=== PATIENT | female | born 1970 | race Caucasian/White ===

== ENCOUNTER 2018-12-10 14:01 | Emergency (ER) | payer BC, SELFPAY ==
[2018-12-10 14:01] VITALS: BP 160/91; PULSE 96; RESP 16; TEMP 36.8; O2SAT 96; BMI 37.3
--- NOTE | 2018-12-10 14:10 | EKG12_ITS ---
Test Reason : CP Blood Pressure : / mmHG Vent. Rate : 097 BPM Atrial Rate : 097 BPM P-R Int : 146 ms QRS Dur : 094 ms QT Int : 348 ms P-R-T Axes : 073 052 050 degrees QTc Int : 441 ms Normal sinus rhythm Nonspecific ST abnormality Abnormal ECG Confirmed by MINO MEDINA, HAYLEY ([id number]), assistant production editor MICHAELA GONZALES ([id number]) on 12/14/2018 12:28:36 PM Referred By: MR Confirmed By:HAYLEY HERZOG MD
--- NOTE | 2018-12-10 14:10 | NURSING ---
NO OLD EKGS
[2018-12-10 14:25] VITALS: O2SAT 99
--- NOTE | 2018-12-10 14:27 | RAD_ITS ---
STUDY: X-RAY CHEST REASON FOR EXAM: Female, 48 years old. Chest pain. TECHNIQUE: Single AP portable view of the chest. COMPARISON: None. FINDINGS: EKG electrodes are seen. The lungs are clear and expanded. Scattered calcified granulomas. There is no demonstrated pleural abnormality. Normal size heart. Normal mediastinum and kraig. Normal visualized pulmonary arteries. Normal visualized aortic arch and descending thoracic aorta. Normal visualized thoracic spine. Normal visualized ribs, clavicles, and shoulders. There is no demonstrated abnormality of the visualized soft tissue structures of the upper abdomen. RAD/Chest 1 View (Portable) IMPRESSION: Normal x-ray examination of the chest. Electronically Signed: Denzel Amato, at 14:44 EDT , Service support ,
[2018-12-10 14:52] LABS: Absolute Lymphocyte Count 0.88 X10^3/uL (0.83-4.51); Absolute Neutrophil Count 4.1 X10^3/uL (2.0-7.7); Basophil# 0.02 X10^3/uL; Basophil% 0.4 % (0-1); Eosinophil# 0.11 X10^3/uL; Hematocrit 37.1 % (37-47); Hemoglobin 12.1 g/dL (12.0-15.0); Lymphocyte # 0.88 X10^3/ul (4.0); Lymphocyte % 15.7 % (19-41); Mean Corp Hgb Conc 32.6 g/dL (32-36); Mean Corpuscular Hgb 27.5 pg (27.0-32.0); Mean Corpuscular Volume 84.3 fL (81-99); Mean Platelet Vol. 8.7 fl (6.2-12.0); Monocyte% 8.9 % (0-10); NRBC Flagged by Analyzer 0 % (0-5); Neutrophil # 4.05 X10^3/uL (2.7-7.7); Neutrophil % 72.5 % (47-70); Platelet Count 218 K/mm3 (150-450); RBC Distribution Width CV 13.2 % (11.6-14.6); RBC Distribution Width SD 40.7 fl (35.1-43.9); White Blood Count 5.6 K/mm3 (4.4-11.0)
[2018-12-10 15:03] LABS: Anion Gap 2 (5-15); BUN 14 mg/dL (7-18); BUN/Creat Ratio 14.6 RATIO (10-20); Calcium,Total 9.2 mg/dL (8.5-10.1); Chloride 104 mmol/L (98-107); Creatinine, Serum 0.96 mg/dL (0.55-1.02); EST Glomerular Filtration Rate 66 mL/min (>60); Est Glom Filt Rate - Afr Amer 80 mL/min (>60); Estimated Creatinine Clearance 57.91 ml/min; Glucose 86 mg/dL (74-106); Potassium 3.8 mmol/L (3.5-5.1); Sodium Level 138 mmol/L (136-145)
--- NOTE | 2018-12-10 15:20 | ED.VISSUMM ---
- ER Visit Summary Date of Service: 12/10/18 Chief Complaint: Chest pain History of Present Illness: The patient is a [address] Garrett. She has no risk factors for coronary artery disease. She reports that she has chest pain that began approximately 10 minutes after eating today. She describes as a burning pain that is 5-10 at worst and 2-10 currently. Is worsened by nothing including exertion, breathing, or movement. It is also relieved by nothing. She denies any associated nausea, vomiting, diaphoresis, shortness of breath. No personal family history of DVT. No recent travel. No ankle swelling or calf pain. Physical Examination: Vitals: Stable. Afebrile. General: Well-nourished and well-developed. Head: Normocephalic atraumatic. Neck: Supple, no lymphadenopathy. No JVD. Nontender. Cardiovascular: Regular rate and rhythm. No murmurs. Respiratory: No respiratory distress. Clear to auscultation bilaterally. Abdominal: Soft, nontender, nondistended, normal bowel sounds. No guarding, rebound, or peritoneal signs. Back: Nontender. Extremities: Nontender, no edema. Skin: Normal color, no rash. Neurologic: Alert and oriented ?3. Cranial nerves II through XII are intact. Normal strength and sensation. Psych: Normal affect. Test Results: EKG is sinus at [address] changes. Troponin is negative. Chem-7 is normal. CBC is microcytic for 73 months at 16. Chest x-ray shows no acute disease. Emergency Department Course and Treatment: Patient was treated with aspirin and a GI cocktail. She reports that she has gotten significant relief from this. Treatment Plan: Patient's pain is very atypical. She will be discharged with Zantac and instructed to follow-up with her primary care physician as soon as possible. Return to the emergency department for any worsening symptoms. Disposition: To home in improved and stable condition. Impression: 1. Atypical chest pain. 2. ERICA score of 0. This note was generated with [employer] dictation software. It may contain incorrect words, spelling, and punctuation that were not noted in review of the chart prior to signing ED Disposition - Plan for ED Patient: Disposition: Home or Assisted Living Instructions: CHEST PAIN, Uncertain Cause Prescriptions: Ranitidine [Zantac] 300 mg PO DAILY #30 tab Prescription Printed Referrals: Ángel Garrett, DO [Primary Care Provider] - As soon as possible
[2018-12-10] MEDS: Mag Hydrox/Al Hydrox/Simeth 30 ML UDC PO (15:40)
[2018-12-10 15:41] VITALS: BP 132/86; PULSE 74; RESP 16; O2SAT 98
[2018-12-10 16:10] VITALS: BP 126/74; PULSE 72; RESP 15; O2SAT 96
== END 2018-12-10 16:12 | disposition home or self-care (01) ==
LOC: ED 15:01
PROVIDERS: Emergency Provider Emergency Medicine; Family Provider Student in an Organized Health Care Education/Training Program; PCP Student in an Organized Health Care Education/Training Program
DX: R07.89 Other chest pain (principal); Z79.82 Long term (current) use of aspirin; Z79.899 Other long term (current) drug therapy; Z87.442 Personal history of urinary calculi
CPT/HCPCS: 71045; 80048; 84484; 85025; 93005; 99285; A4216

== ENCOUNTER 2018-12-21 17:11 | Outpatient (RCR) | payer BC, SELFPAY | END 2018-12-23 23:59 | LOC: NS 17:11 | PROVIDERS: Family Provider Student in an Organized Health Care Education/Training Program; PCP Student in an Organized Health Care Education/Training Program; Visit Provider Obstetrics & Gynecology | DX: E66.3 Overweight (principal); Z68.37 Body mass index [BMI] 37.0-37.9, adult; Z71.3 Dietary counseling and surveillance | CPT/HCPCS: 97802 ==

== ENCOUNTER 2019-01-19 17:00 | Outpatient (RCR) | payer BC, SELFPAY | END 2019-01-23 23:59 | LOC: NS 17:00 | PROVIDERS: Family Provider Student in an Organized Health Care Education/Training Program; PCP Student in an Organized Health Care Education/Training Program; Visit Provider Obstetrics & Gynecology | DX: Z68.37 Body mass index [BMI] 37.0-37.9, adult (principal); E66.3 Overweight; Z71.3 Dietary counseling and surveillance | CPT/HCPCS: 97803 ==

== ENCOUNTER → 2019-02-05 12:45 | Outpatient (CLI) | payer BC, SELFPAY ==
--- NOTE | 2019-02-05 12:59 | RAD_ITS ---
STUDY: X-RAY - CERVICAL SPINE REASON FOR EXAM: Female, 48 years old. Neck pain TECHNIQUE: 5 view(s) of the cervical spine were obtained. COMPARISON: None FINDINGS: Normal anterior atlantoaxial articulation. Normal odontoid process. Normal cervical lordosis. Normal vertebral bodies and endplates. Normal disc space heights. Normal visualized intervertebral neuroforamina. The soft tissue structures are unremarkable. RAD/Cerv Spine 4 or 5 Views IMPRESSION: Normal x-ray examination of the visualized cervical spine. Electronically Signed: Juan M Sumner, at 20:49 EDT Tel , Service support ,
--- NOTE | 2019-02-05 12:59 | RAD_ITS ---
STUDY: X-RAY - THORACIC SPINE REASON FOR EXAM: Female, 48 years old. Pain TECHNIQUE: 3 view(s) of the thoracic spine were obtained. COMPARISON: None. FINDINGS: Normal kyphosis of the thoracic spine. There is no substantial scoliosis. Normal thoracic vertebrae and endplates. Normal disc space heights. The soft tissue structures are unremarkable. RAD/Thoracic Spine 3 Views IMPRESSION: Normal x-ray examination of the thoracic spine. Electronically Signed: Juan M Sumner, at 20:57 EDT Tel , Service support ,
--- NOTE | 2019-02-05 12:59 | RAD_ITS ---
STUDY: X-RAY - LUMBAR SPINE REASON FOR EXAM: Female, 48 years old. Low back pain TECHNIQUE: 3 view(s) of the lumbar spine were obtained. COMPARISON: None FINDINGS: Normal lumbar lordosis. There is no substantial scoliosis. There is a normal alignment of the vertebrae. Normal vertebral bodies and endplates. Normal disc space heights. The soft tissue structures are unremarkable. There is a 1 cm dense calcification projecting over the lower renal pole. RAD/Lumbar Spine 2 or 3 Views IMPRESSION: Normal x-ray examination of the lumbar spine. Possible left renal pole 1 cm stone, inconclusively demonstrated. Recommend confirmatory imaging. Electronically Signed: Juan M Sumner, at 20:55 EDT Tel , Service support ,
== END ==
PROVIDERS: Family Provider Student in an Organized Health Care Education/Training Program; PCP Student in an Organized Health Care Education/Training Program; Referring Provider Student in an Organized Health Care Education/Training Program; Visit Provider Student in an Organized Health Care Education/Training Program
DX: M54.6 Pain in thoracic spine (principal); G89.29 Other chronic pain
CPT/HCPCS: 72050; 72072; 72100

== ENCOUNTER → 2019-02-15 17:03 | Outpatient (CLI) | payer BC, SELFPAY ==
--- NOTE | 2019-02-15 17:06 | US_ITS ---
STUDY: RENAL ULTRASOUND - COMPLETE REASON FOR EXAM: Female, 48 years old. Renal stones TECHNIQUE: Ultrasound evaluation of the kidneys was performed with real-time and static godoy-scale imaging. COMPARISON: None available. FINDINGS: RIGHT KIDNEY: Normal location of the right kidney, which is normal in size. The right kidney measures 10 cm. There is a normal cortex of the right kidney. There is no right renal mass or cyst. There is a right renal midpole 9 mm stone. Mild bilateral collecting system fullness. DISTAL RIGHT URETER: Not seen. LEFT KIDNEY: Normal location of the left kidney, which is normal in size. The left kidney measures 10 cm. There is a normal cortex of the left kidney. There is no left renal mass or cyst. There is a left renal midpole 1.1 cm stone. Mild bilateral collecting system fullness is present. DISTAL LEFT URETER: Not seen. AORTA: No evidence of abdominal aortic aneurysm. I.V.C.: The IVC is patent. BLADDER: The urinary bladder is partially distended and appears unremarkable. US/Kidney and Bladder IMPRESSION: Bilateral renal stones. Mild bilateral collecting system fullness. Electronically Signed: Yogi Ward, at 19:43 EDT Tel , Service support ,
== END ==
LOC: US 17:05
PROVIDERS: Family Provider Student in an Organized Health Care Education/Training Program; PCP Student in an Organized Health Care Education/Training Program; Referring Provider Student in an Organized Health Care Education/Training Program; Visit Provider Student in an Organized Health Care Education/Training Program
DX: N20.0 Calculus of kidney (principal); R39.89 Other symptoms and signs involving the genitourinary system
CPT/HCPCS: 76770

== ENCOUNTER 2019-02-16 17:00 | Outpatient (RCR) | payer BC, SELFPAY | END 2019-02-22 23:59 | LOC: NS 17:00 | PROVIDERS: Family Provider Student in an Organized Health Care Education/Training Program; PCP Student in an Organized Health Care Education/Training Program; Visit Provider Obstetrics & Gynecology | DX: Z68.37 Body mass index [BMI] 37.0-37.9, adult (principal); E66.3 Overweight; Z71.3 Dietary counseling and surveillance | CPT/HCPCS: 97803 ==

== ENCOUNTER 2019-03-23 17:00 | Outpatient (RCR) | payer BC, SELFPAY | END 2019-03-25 23:59 | LOC: NS 17:00 | PROVIDERS: Family Provider Student in an Organized Health Care Education/Training Program; PCP Student in an Organized Health Care Education/Training Program; Visit Provider Obstetrics & Gynecology | DX: Z68.37 Body mass index [BMI] 37.0-37.9, adult (principal); E66.3 Overweight; Z71.3 Dietary counseling and surveillance | CPT/HCPCS: 97803 ==

== ENCOUNTER 2019-04-15 16:01 | Outpatient (RCR) | payer BC, SELFPAY | END 2019-04-24 23:59 | LOC: NS 16:01 | PROVIDERS: Family Provider Student in an Organized Health Care Education/Training Program; PCP Student in an Organized Health Care Education/Training Program; Visit Provider Obstetrics & Gynecology | DX: Z71.3 Dietary counseling and surveillance (principal); Z68.37 Body mass index [BMI] 37.0-37.9, adult; E66.3 Overweight | CPT/HCPCS: 97803 ==

== ENCOUNTER 2019-05-24 17:15 | Outpatient (RCR) | payer BC, SELFPAY | END 2019-05-25 23:59 | LOC: NS 17:15 | PROVIDERS: Family Provider Student in an Organized Health Care Education/Training Program; PCP Student in an Organized Health Care Education/Training Program; Visit Provider Obstetrics & Gynecology | DX: Z71.3 Dietary counseling and surveillance (principal); E66.3 Overweight; Z68.37 Body mass index [BMI] 37.0-37.9, adult | CPT/HCPCS: 97803 ==

== ENCOUNTER 2019-06-15 16:20 | Outpatient (RCR) | payer BC, SELFPAY ==
[2019-05-14 08:03] VITALS: BMI 37.3
[2019-06-14 15:17] VITALS: BMI 37.3
== END 2019-06-15 23:59 | disposition home or self-care (01) ==
LOC: NS 16:20
PROVIDERS: Family Provider Student in an Organized Health Care Education/Training Program; PCP Student in an Organized Health Care Education/Training Program; Visit Provider Obstetrics & Gynecology
DX: Z71.3 Dietary counseling and surveillance (principal); Z68.37 Body mass index [BMI] 37.0-37.9, adult; E66.3 Overweight
CPT/HCPCS: 97803

== ENCOUNTER → 2020-08-02 07:58 | Outpatient (CLI) | payer OTHER, BC, SELFPAY ==
[2020-06-13 16:07] VITALS: BMI 34.7
[2020-08-02 08:16] LABS: Absolute Lymphocyte Count 0.77 X10^3/uL (0.83-4.51); Absolute Neutrophil Count 3.9 X10^3/uL (2.0-7.7); Basophil# 0.03 X10^3/uL; Basophil% 0.6 % (0-1); Eosinophil# 0.19 X10^3/uL; Eosinophils% 3.5 % (0-5); Hemoglobin 12.8 g/dL (12.0-15.0); Lymphocyte # 0.77 X10^3/ul (4.0); Lymphocyte % 14.4 % (19-41); Mean Corp Hgb Conc 32.8 g/dL (32-36); Mean Corpuscular Hgb 27.8 pg (27.0-32.0); Mean Corpuscular Volume 84.8 fL (81-99); Mean Platelet Vol. 8.6 fl (6.2-12.0); Monocyte# 0.43 X10^3/uL; NRBC Flagged by Analyzer 0 % (0-5); Neutrophil % 72.8 % (47-70); Platelet Count 239 K/mm3 (150-450); RBC Distribution Width CV 13.1 % (11.6-14.6); RBC Distribution Width SD 40.2 fl (35.1-43.9); White Blood Count 5.4 K/mm3 (4.4-11.0)
[2020-08-02 08:34] LABS: Hemoglobin A1c 5.2 % (3.8-5.6)
[2020-08-02 08:39] LABS: ALB/GLOB Ratio 0.9 RATIO (0.9-2.4); AST(SGOT) 14 U/L (15-37); Alanine Aminotransfer ALT/SGPT 20 U/L (13-56); Albumin, Serum 3.6 g/dL (3.2-5.0); Alkaline Phosphatase 104 U/L (45-117); Anion Gap 1 (5-15); BUN 16 mg/dL (7-18); BUN/Creat Ratio 21.1 RATIO (10-20); Calcium,Total 8.9 mg/dL (8.5-10.1); Chloride 105 mmol/L (98-107); Cholesterol 226 mg/dL (200); Creatinine, Serum 0.76 mg/dL (0.55-1.02); EST Glomerular Filtration Rate 87 mL/min (>60); Est Glom Filt Rate - Afr Amer 105 mL/min (>60); Glucose 89 mg/dL (74-106); High Density Lipoprotein 78 mg/dL; Potassium 4.1 mmol/L (3.5-5.1); Protein, Total 7.6 g/dL (6.4-8.2); Sodium Level 138 mmol/L (136-145); Thyroid Stim Hormone (TSH) 3.17 uIU/mL (0.358-3.74); Triglycerides 65 mg/dL; Very Low Density Lipoprotein 13 mg/dL (5-40)
[2020-08-02 08:52] LABS: Vitamin D,25 Hydroxy 32.8 ng/mL
== END ==
PROVIDERS: PCP Internal Medicine; Referring Provider Internal Medicine; Visit Provider Internal Medicine
DX: G35 Multiple sclerosis (principal); R79.89 Other specified abnormal findings of blood chemistry; E55.9 Vitamin D deficiency, unspecified; E66.9 Obesity, unspecified; Z13.1 Encounter for screening for diabetes mellitus; Z13.220 Encounter for screening for lipoid disorders
CPT/HCPCS: 36415; 80053; 80061; 82306; 83036; 84443; 85025

== ENCOUNTER → 2021-01-23 07:54 | Outpatient (CLI) | payer OTHER, BC, SELFPAY ==
--- NOTE | 2021-01-23 07:55 | VDLE_ITS ---
Reason For Study: Swelling RIGHT GSV is normal. CFV is compressible, spontaneous, phasic, competent and demonstrates normal augmentation. FV is compressible, spontaneous, phasic, competent and demonstrates normal augmentation. POP V is compressible, spontaneous, phasic, competent and demonstrates normal augmentation. T/P Trunk is compressible. PTV is compressible. RT PerV is compressible. Procedure This is a venous duplex using B-mode, color flow and spectral Doppler. Exam performed in department. A preliminary report was called and/or faxed to Edu. VL/Venous Duplex US, Unilateral Interpretation Summary There is no evidence of right lower extremity deep vein thrombosis. Right great saphenous vein appears patent and compressible segmentally. Ordering Physician: Cass Sorensen Referring Physician: Cass Sorensen Performed By: Vanna Mariano RVT
== END ==
PROVIDERS: PCP Internal Medicine; Referring Provider Internal Medicine; Visit Provider Internal Medicine
DX: M79.606 Pain in leg, unspecified (principal); M79.89 Other specified soft tissue disorders
CPT/HCPCS: 93971

== ENCOUNTER 2021-07-21 11:02 | Emergency (ER) | payer OTHER, BC, SELFPAY ==
[2021-07-21 11:03] VITALS: BP 147/96; PULSE 93; RESP 15; TEMP 36; O2SAT 97; BMI 36.6
--- NOTE | 2021-07-21 11:19 | VDLE_ITS ---
Reason For Study: pain Procedure LEFT This is a venous duplex using B-mode, color GSV is normal. flow and spectral Doppler. CFV is compressible, spontaneous, phasic, Exam performed portable in ED. competent, and demonstrates normal The exam was abbreviated due to the COVID 19 augmentation. protocol. FV is compressible, spontaneous, phasic, The exam was diagnostic. competent and demonstrates normal A preliminary report was called and/or faxed augmentation. to Dr. Allison. POP V is compressible, spontaneous, phasic, competent and demonstrates normal augmentation. T/P Trunk is compressible. Calf veins not imaged due to splint. VL/Venous Duplex US, Unilateral Interpretation Summary There is no evidence of left lower extremity deep vein thrombosis. Left great s aphenous vein appears patent and compressible segmentally. Limited examination as the left calf veins could not be imaged due to the application of a splint. Abbreviated Covid-19 protocol utilized Ordering Physician: Jak Allison Performed By: Filipe Ortez RVT
--- NOTE | 2021-07-21 11:20 | EDS_ITS ---
HPI History of Present Illness Chief Complaint: Lower Extremity Injury Narrative Narrative: Patient presents with left lower extremity pain. 1 to 2 weeks ago she sustained a trimalleolar fracture to her left ankle. She was seen in outside facility. Over the last few days she started having burning pain when standing. She states it took them a few times to set her ankle, according to her . She denies any chest pain or shortness of breath. She called her primary care physician and was sent to the emergency department with concern for a blood clot. She states that when she elevates her leg at home, she does not get the pain, but when she stands she gets the burning sensation and increased pain in her lower leg. No fevers or chills. No discoloration of toes. PFSH PFS Medical History Allergic dermatitis Bilateral headaches Heart murmur History of kidney stones Multiple sclerosis Optic neuritis Home Medications aspirin 162 mg PO BID 12/10/18 [History Last Taken Unknown] cholecalciferol (vitamin D3) 2,000 unit PO DAILY 12/10/18 [History Last Taken Unknown] dimethyl fumarate 1 cap PO BID 12/10/18 [History Last Taken Unknown] cyanocobalamin (vitamin B-12) 500 mcg tablet 500 mcg PO DAILY 10/28/19 [History Last Taken Unknown] omega-3 fatty acids 1,000 mg capsule 1,000 mg PO DAILY 05/08/20 [History Last Taken Unknown] baclofen 10 mg tablet 10 mg PO BID PRN 06/08/20 [History Last Taken Unknown] estradiol 0.5 mg tablet 0.5 mg PO DAILY 30 Days #90 tab 07/19/20 [Rx Last Taken Unknown] ibuprofen 200 mg capsule 200 mg PO Q6H PRN 07/05/21 [History Last Taken Unknown] miscellaneous medical supply #1 ea 07/16/21 [Rx Last Taken Unknown] miscellaneous medical supply 1 ea MISCELLANEOUS .prn #1 ea 07/16/21 [Rx Last Taken Unknown] Allergy/AdvReac Type Severity Reaction Status Date / Time No Known Allergies Allergy Verified 07/21/21 11:05 Family History Grandfather Brain cancer Father CVA (cerebral vascular accident) Diabetes Other Asthma Cancer Hyperlipemia Hypertension Kidney disease Ovarian cancer Thyroid disorder Surgical History History of cholecystectomy History of endoscopy History of hysterectomy History of lithotripsy History of right oophorectomy Social History Smoking Status: Never smoker alcohol intake: current alcohol intake frequency: holidays/special occasions only substance use type: does not use caffeine: Yes what type of physical activity do you participate in: walking frequency: 3-4 times per week seatbelt use: always do you feel safe at home: Yes additional social history: - [place] 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 HEENT: No sore throat. No neck pain. No loss of vision. No rhinorrhea. Cardiovascular: No chest pain. No palpitations. No pedal edema. Respiratory: No cough, no shortness of breath. Abdominal: No abdominal pain. No nausea. No vomiting. Genitourinary: No dysuria. No hematuria. Musculoskeletal: No myalgias. Left ankle pain, left lower extremity pain and burning sensation upon standing. Neurologic: No headaches. No dizziness. No lightheadedness. Skin: No rash. No change in color. Psychiatric: No depression. No anxiety. EXAM Physical Exam Narrative Exam Narrative: Afebrile. Vital signs noted. HEENT: Normocephalic. Atraumatic. PERRL, EOMI. Neck soft and supple. No point tenderness or step off. Cardiovascular: Regular rate and rhythm. No murmurs, rubs, or gallops appreciated. Respiratory: No tachypnea. Lungs clear to auscultation bilaterally. Gastrointestinal: Abdomen soft, nontender, with normoactive bowel sounds. No rebound or guarding. Neurological: Awake. Alert. Nonfocal, nonlateralizing. Skin: No rash. Normal color. No pallor. Musculoskeletal: No pedal edema. Left lower extremity is in a modified Rogelio Arias splint. She has good movement of her toes on the left side with good capillary refill. Toes are normal in color. No tenderness to palpation left anterior thigh. Const Vital Signs: 07/21/21 11:03 Temperature 96.8 F L Temperature Source Temporal Pulse Rate 93 Respiratory Rate 15 Blood Pressure 147/96 H Blood Pressure Mean 113 Pulse Ox 97 Oxygen Delivery Method Room Air MDM MDM MDM Narrative Medical decision making narrative: In discussion with the patient and her , they are hesitant to have me remove her splint given the instability of her trimalleolar fracture. With concern for a blood clot, ultrasound will be obtained at least to the level of her splint. Her ultrasound is negative for DVT. They were unable to perform the calf veins secondary to the splint. Regardless, I do feel that she can be discharged safely home with follow-up to podiatry on Friday for her surgery. She was told to elevate her leg as much as possible. As she states that she only gets a sensation when she stands, I do feel it is from the swelling and she is having more neuropathic burning pain. Hence, she will elevate her leg and follow-up with podiatry. Disposition is discharged home in stable condition. Discharge Plan Triage Chief Complaint: Lower Extremity Injury ED Provider: Jak Allison Dx/Rx/DC Orders Clinical Impression: Leg pain Instructions: ED Fracture, Lower Extremity Prescriptions: No Action cyanocobalamin (vitamin B-12) [B-12 DOTS] 500 mcg tablet 500 mcg PO DAILY RF: 0 omega-3 fatty acids [Fish Oil Concentrate] 1,000 mg capsule 1,000 mg PO DAILY RF: 0 baclofen 10 mg tablet 10 mg PO BID PRNRF: 0 ibuprofen 200 mg capsule 200 mg PO Q6H PRNRF: 0 miscellaneous medical supply Misc 1 ea miscellaneous .prn Qty: 1 RF: 0 cholecalciferol (vitamin D3) 2,000 UNIT capsule 2,000 unit PO DAILY RF: 0 dimethyl fumarate 240 capsule,delayed release(DR/EC) 1 cap PO BID RF: 0 aspirin 81 MG tablet,chewable 162 mg PO BID RF: 0 estradiol 0.5 mg tablet 0.5 mg PO DAILY 30 Days Qty: 90 RF: 3 (DME) miscellaneous medical supply Misc See Rx Instructions .ROUTE .MEDSUPPLY Qty: 1 RF: 0 Primary Care Provider: Cass Sorensen Referrals: Cass Sorensen MD [Primary Care Provider] - Activity Restrictions/Additional Instructions: 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 Keep your left lower extremity elevated as much as possible. Disposition Disposition: Home, Self Care
== END 2021-07-21 12:55 | disposition home or self-care (01) ==
PROVIDERS: Emergency Provider Emergency Medicine; PCP Internal Medicine; Visit Provider Emergency Medicine
DX: M79.605 Pain in left leg (principal); G35 Multiple sclerosis; M79.89 Other specified soft tissue disorders; S82.852D Displaced trimalleolar fracture of left lower leg, subsequent encounter for closed fracture with routine healing; X58.XXXD Exposure to other specified factors, subsequent encounter; Z79.82 Long term (current) use of aspirin; Z79.899 Other long term (current) drug therapy
CPT/HCPCS: 93971; 99282

== ENCOUNTER 2021-07-24 15:17 | Observation (INO) | payer OTHER, BC, SELFPAY ==
[2021-07-21 11:08] LABS: Absolute Lymphocyte Count 0.62 X10^3/uL (0.83-4.51); Absolute Neutrophil Count 5.3 X10^3/uL (2.0-7.7); Basophil# 0.03 X10^3/uL; Basophil% 0.5 % (0-1); Eosinophil# 0.06 X10^3/uL; Eosinophils% 0.9 % (0-5); Hemoglobin 12.5 g/dL (12.0-15.0); Lymphocyte # 0.62 X10^3/ul (0.83-4.51); Lymphocyte % 9.7 % (19-41); Mean Corp Hgb Conc 33.8 g/dL (32-36); Mean Corpuscular Hgb 28.4 pg (27.0-32.0); Mean Corpuscular Volume 84.1 fL (81-99); Mean Platelet Vol. 8.6 fl (6.2-12.0); Monocyte# 0.36 X10^3/uL; Monocyte% 5.7 % (0-10); NRBC Flagged by Analyzer 0 % (0-5); Neutrophil # 5.28 X10^3/uL (2.7-7.7); Neutrophil % 82.9 % (47-70); Platelet Count 261 K/mm3 (150-450); RBC Distribution Width CV 12.9 % (11.6-14.6); RBC Distribution Width SD 38.8 fl (35.1-43.9); White Blood Count 6.4 K/mm3 (4.4-11.0)
[2021-07-21 11:17] LABS: Prothrombin Time (Protime)PT. 12.8 SECONDS (11.7-14.9)
[2021-07-21 11:18] LABS: Partial Thromboplast Time 24.8 Seconds (24.1-36.2)
[2021-07-21 11:45] LABS: Anion Gap 1 (5-15); BUN 10 mg/dL (7-18); BUN/Creat Ratio 13.8 RATIO (10-20); Calcium,Total 9.6 mg/dL (8.5-10.1); Chloride 105 mmol/L (98-107); Creatinine, Serum 0.73 mg/dL (0.55-1.02); EST Glomerular Filtration Rate 91 mL/min (>60); Est Glom Filt Rate - Afr Amer 110 mL/min (>60); Glucose 99 mg/dL (74-106); Sodium Level 137 mmol/L (136-145)
--- NOTE | 2021-07-23 12:03 | EKG12_ITS ---
Test Reason : PRE OP Blood Pressure : / mmHG Vent. Rate : 084 BPM Atrial Rate : 084 BPM P-R Int : 144 ms QRS Dur : 078 ms QT Int : 356 ms P-R-T Axes : 071 069 057 degrees QTc Int : 420 ms Normal sinus rhythm Normal ECG Confirmed by MINO MEDINA, HAYLEY ([id number]), legal editor TAWANNA RIVAS ([id number]) on 07/24/2021 10:42:45 AM Referred By: Savanah Joseph Confirmed By:HAYLEY HERZOG MD
[2021-07-24] VITALS (8 sets, daily range): BP systolic 123–152; BP diastolic 76–91; PULSE 74–90; RESP 16–18; TEMP 35.8–36.9; O2SAT 94–100; BMI 36.3
[2021-07-24 12:10] LABS: Vitamin D,25 Hydroxy 33.4 ng/mL
--- NOTE | 2021-07-24 12:28 | RAD_ITS ---
STUDY: X-RAY - LEFT ANKLE REASON FOR EXAM: Female, 50 years old. ORIF of a left ankle fracture TECHNIQUE: 20 intraoperative view(s) of the ankle. COMPARISON: None. FINDINGS: 20 Limited intraoperative films were performed as patient has undergone open reduction internal fixation of a posterior malleolar fracture There is already a metallic sideplate with multiple screws along the distal lateral fibula. During this procedure patient underwent 2 threaded screws through the posterior tibia to reduce minimally displaced fracture. Alignment after hardware placement is anatomic. Follow-up is recommended to assure complete osseous union. No intraoperative complications. RAD/Ankle min 3 Views IMPRESSION: ORIF of the distal tibial fracture Electronically Signed: Eduardo Baez MD at 15:12 EST ,
[2021-07-24] MEDS: Cefazolin 2 GM in 0.9% Normal Saline 100 ML IV (12:37)
--- NOTE | 2021-07-24 15:15 | PCM.OPRPT ---
Problems Associated Problem List Diagnoses (1) Displaced trimalleolar fracture of left lower leg, initial encounter for closed fracture: Report of Operation Date of Procedure: 07/24/21 Pre-Operative Diagnosis: Left trimalleolus ankle fracture equivalent Post-Operative Diagnosis: Left trimalleolus ankle fracture equivalent Surgery/Procedure Performed:: Open reduction internal fixation of left ankle fracture Description of Surgical Findings:: Hemostasis: Well-padded pneumatic left thigh tourniquet, 350 mmHg, 93 minutes Materials: 8 hole Arthrex posterior lateral contour plate, 2 partially threaded 3.0 cannulated screws, one 3.5 locking screw, two 3.5 cortical screws, two 3.0 cortical screws, two 3.0 locking screws, 2-0 Vicryl, 4-0 Monocryl The patient tolerated the procedure and anesthesia well. The patient was transported to the PACU with vital signs stable and vascular status intact to the surgical limb. To ice and elevate for pain and inflammation management. Postoperative x-rays were reviewed prior to leaving the operating room. Adequate deformity and fracture reduction in an anatomic manner was confirmed with hardware in place in the desired trajectory and position. No acute injuries were noted. The ankle mortise is well aligned in a rectus position. Post fixation stress test were also performed including stress eversion, dorsiflexion external rotation, and cotton test without additional gross instability of the syndesmosis. Postoperative orders were entered electronically. Surgeon: Savanah Joseph silk hanger: None (visual merchandising assistant: Ana Stacy, PGY3) Type of Anesthesia: General/Regional (Popliteal left lower extremity block) and Local (Postoperative: 10 cc 0.5% Marcaine plain administered to saphenous nerve block left lower extremity) Anesthesiologist: Abad Arevalo Specimen's removed: None Drains: None Estimated Blood Loss (mL): < 100 mL Description of Procedure: Indications: This 50-year-old pleasant female with significant past medical history of obesity, multiple sclerosis, history of heart murmur presented for open reduction internal fixation of left ankle fracture today. She slipped on some ice approximately 1.5 weeks ago when she went out for a walk with her sister while in [place]. Her neurovascular status is intact and she had her ankle fracture was reduced in the emergency room and she was placed in a splint. This remained a closed fracture. Preoperative H&P were reviewed including her diagnostic data. There were no gross abnormalities noted with labs or preoperative EKG. Preoperative indications, planned procedure, benefits, risk, anticipated healing time and management were reviewed. The patient understands and elects proceed with surgery at this time. No guarantees were made. The patient understands risk and complications include but are not limited to following: pain, swelling, scarring, need for further surgery, tendon contracture, transfer lesion, hardware failure, arthritis, need for further surgery, delayed or nonhealing, infection, blood clot, allergic reaction, loss of limb, function, or life. The informed surgical limb and consent were signed. I answered all the patient's questions. The patient also understands there is an inherent risk with being in the hospital and undergoing a procedure during the time of COVID-19 pandemic. The patient understands precautions are being taken to prevent transmission. This patient understands the benefits and risks of having a procedure at this time versus waiting in which the benefits are reasonable at this time. Procedure in detail: Prior to entering the operating room, the left lower extremity preoperative regional block was administered by the anesthesia team. The patient was then transported to the operating room via cart and final verification of the patient, surgery, and surgical limb were confirmed. General anesthesia was initiated by the anesthesia team. Preoperative IV antibiotics were administered. The patient was next placed into a prone position in a well-padded manner. A well-padded left thigh tourniquet was placed. The left lower extremity was prepped and draped in the usual aseptic manner and surgery began as the following: An Esmarch bandage was used to exsanguinate the limb and the tourniquet was inflated at this time. A linear 10 cm incision was made to the posterior lateral ankle posterior to the fibular border. This incision made through the skin. Blunt dissection was performed down to the posterior crural fascia taking care to identify, protect, and retract all neurovascular structures at this time and throughout the remainder of the surgery. A rent was made into this posterior fascial compartment and the peroneal tendons and flexor hallucis longus tendon were clearly identified. The peroneal tendons were retracted posteriorly and the fibula fracture was immediately identified. This was mobilized and cleaned with sharp instrumentation to allow adequate reduction. First, the posterior lateral plate was secured distally with cortical and locking screws. Next, the through plate reduction the distal fibula was slightly pulled out to proper length and another cortical screw was applied proximally. The plate at this time was well approximated to the fibula and the proximal holes were filled with a locking screw utilizing proper AO fixation technique. Next, utilizing lag screw technique with proper AO fixation technique, two screw was applied across the main fracture fragment to allow better rotational position and compression. All reduction clamps were removed and solid fixation was confirmed as this moved as one solid unit. Deformity and fracture reduction was confirmed clinically and radiographically. Next, the peroneal tendons were retracted anteriorly and flexor hallucis longus muscle belly medial so the posterior fracture fragment was identified directly. Sharp resection of the periosteum was performed only at the fracture fragment site to allow mobilization. This was temporarily fixated with guidewires and utilizing proper AO fixation technique, two cannulated partially threaded 3.0 screws were applied to allow compression and full fracture reduction. Improvement of the articular alignment was achieved. Proper hardware placement including trajectory and placement was confirmed with intraoperative fluoroscopy. The joint surfaces are well aligned and the fibula maintained the desired length. There was no articular step off noted and compression at the fracture site was confirmed. The fractures were noted to be anatomically reduced. The syndesmosis was next stressed with a cotton test, stress eversion and dorsiflexion external rotation. No instability was noted. Therefore additional fixation was not deemed necessary. Copious saline irrigation was performed. Deep closure was achieved with Vicryl. The tourniquet was deflated at this time and pressure was applied to maintain hemostasis with minimal electrocauterization. No pulsatile bleeding was noted. There was brisk capillary refill time to all digits of the left foot at this time. The skin was reapproximated with running 4.0 Monocryl suture utilizing subcuticular technique. I administered the postoperative local anesthetic as noted. A dressing consisting of Steri-Strips, Adaptic soaked in Betadine, gauze, abdominal pads, and Kerlix was applied. Lastly, A well-padded posterior mold with sugar tong splint was next applied with the left lower extremity in a rectus position. After procedure: The patient tolerated the procedure and anesthesia well. The patient was transported to the PACU with vital signs stable and vascular status intact to the surgical limb. To ice and elevate for pain and inflammation management. Postoperative x-rays were reviewed prior to leaving the operating room as noted. Postoperative orders were entered electronically. She will stay for observation for pain control. Physical and occupational therapy will work with her tomorrow to confirm appropriate gait training. I will follow her closely while in house. Savanah Joseph DPM, [facility] [place] Grafts/Implants Used: Arthrex Complications None Admit VTE Documentation VTE Present on Admission: No VTE Mechan Device Prophylaxis: SCD's VTE Pharm Prophylaxis ordered?: Yes
--- NOTE | 2021-07-24 15:15 | PCM.HP.STD ---
HPI - General General Date of Admission: 07/24/21 HPI Narrative This pleasant 50 year old female with significant past medical history of multiple sclerosis and obesity was admitted postoperative left open reduction internal fixation of ankle fracture for pain control and gait training. She had surgical repair on 07/24/21. [facility] Medical History (Updated 07/24/21 @ 15:[address] Savanah Joseph, [facility]) Allergic dermatitis Bilateral headaches Heart murmur History of irregular heartbeat History of kidney stones Multiple sclerosis Non-smoker Optic neuritis Wears contact lenses Wears glasses Home Medications aspirin 162 mg PO BID 12/10/18 [History Last Taken 07/20/21] cholecalciferol (vitamin D3) 2,000 unit PO DAILY 12/10/18 [History Last Taken Unknown] dimethyl fumarate [Tecfidera] 1 cap PO BID 12/10/18 [History Last Taken Unknown] cyanocobalamin (vitamin B-12) 500 mcg tablet 500 mcg PO DAILY 10/28/19 [History Last Taken Unknown] omega-3 fatty acids 1,000 mg capsule 1,000 mg PO DAILY 05/08/20 [History Last Taken Unknown] baclofen 10 mg tablet 10 mg PO BID PRN 06/08/20 [History Last Taken Unknown] estradiol 0.5 mg tablet 0.5 mg PO DAILY 30 Days #90 tab 07/19/20 [Rx Last Taken Unknown] ibuprofen 200 mg capsule 200 mg PO Q6H PRN 07/05/21 [History Last Taken Unknown] miscellaneous medical supply #1 ea 07/16/21 [Rx Last Taken Unknown] miscellaneous medical supply 1 ea MISCELLANEOUS .prn #1 ea 07/16/21 [Rx Last Taken Unknown] Allergy/AdvReac Type Severity Reaction Status Date / Time No Known Allergies Allergy Verified 07/23/21 13:58 Family History Grandfather Brain cancer Father CVA (cerebral vascular accident) Diabetes Other Asthma Cancer Hyperlipemia Hypertension Kidney disease Ovarian cancer Thyroid disorder Surgical History History of cholecystectomy History of endoscopy History of hysterectomy History of lithotripsy History of right oophorectomy Social History Smoking Status: Never smoker alcohol intake: current alcohol intake frequency: holidays/special occasions only substance use type: does not use caffeine: Yes what type of physical activity do you participate in: walking frequency: 3-4 times per week seatbelt use: always do you feel safe at home: Yes additional social history: - [place] 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 [employer] Vital Signs Vital Signs Vital Signs: 07/24/21 11:36 Temperature 98.4 F Temperature Source Temporal Pulse Rate 74 Respiratory Rate 16 Respiratory Pattern Normal Blood Pressure 143/90 H Blood Pressure Mean 107 Blood Pressure Source Monitor Blood Pressure Position Semi-Fowlers Blood Pressure Location Right Arm Pulse Ox 99 Oxygen Delivery Method Room Air Weight Weight: 90 kg Body Mass Index (BMI) 36.3 Physical Exam Const alert and oriented x3 General Appearance: cooperative HEENT normocephalic Resp clear to auscultation bilaterally Cardio regular rate and regular rhythm Extremity Extremity Narrative: No calf tenderness palpable 2/4 PT and DP pulses bilateral lower extremities. Capillary refill time to all digits of the left foot are brisk less than 3 seconds. No pain to palpate proximal fibula, left No bogginess or fluctuance Compartments remain soft to palpation left lower extremity Pain to palpate ankle joints at fracture sites Postoperative left lower extremity is now in a splint in a rectus position General Extremity: edema and no tenderness to palpation of joints or extremities; Negative for cyanosis Skin Skin Narrative: no purulence, no streaking, no odor, no infection. There was a small fracture blister to the lateral ankle at the site of her tattoo. There is no skin tenting or other fracture blisters. Postoperative incision was reapproximated with dressing. General Skin Exam: Negative for erythema Neuro Neuro Narrative: Epicritic sensation intact to light touch left lower extremity Psych cooperative and affect normal Results Lab / Micro Data Result Diagrams: 07/21/21 10:54 07/21/21 10:54 Labs: Laboratory Results - last 24 hr 07/24/21 11:30: Vitamin D 25-Hydroxy 33.4 Radiology Impression Ankle X-Ray 07/24/21 12:28 IMPRESSION: ORIF of the distal tibial fracture Electronically Signed: Eduardo Baez MD at 15:12 EST , Assessment & Plan Assessment/Plan (1) Displaced trimalleolar fracture of left lower leg, initial encounter for closed fracture: (2) Left ankle pain: (3) Difficulty in walking: PLAN: This patient was admitted postoperative left open reduction internal fixation of her ankle fracture. She is observation status for pain management. Pain medication was ordered if needed; oxycodone and morphine. She is stable at this time and has a regional left lower extremity block also in place. Anticoagulation prophylaxis medication will be ordered for tomorrow morning. Continue Vit D supplementation to optimize healing. I recommend she works with PT and OT to confirm appropriate gait training prior to discharge home. Her comorbidities are noted. Hospitalist on consult for medical management and will be appreciated. She is overall stable at this time. I will follow her closely while in house. Please not hesitate to call if you have any questions. Savanah Joseph DPM, [facility] [phone] Procedure Criteria Type of Procedure Procedure Type: Elective Elective Risks - COVID COVID Risk Discussion: The surgeon/proceduralist and patient have discussed in detail the risk of exposure to and/or potential harm posed by the COVID-19 virus with having a surgery/procedure at this time versus the risk of delaying the surgery/procedure. It is not possible to know either the risk of delaying the surgery or procedure or chance of getting an infection with perfect accuracy, but a joint decision was made between the patient and the surgeon/proceduralist to proceed at this time with the scheduled surgery/procedure as indicated on the consent form.
[2021-07-24] MEDS: Bupivacaine Mpf 0.5% 30 ML VIAL (15:19)
--- NOTE | 2021-07-24 15:30 | RAD_ITS ---
STUDY: X-RAY - LEFT ANKLE REASON FOR EXAM: Female, 50 years old. s/p ORIF ankle fracture TECHNIQUE: 3 view(s) of the ankle. COMPARISON: None. FINDINGS: Healing fracture of the posterior tibia after open reduction and internal fixation with 2 screws. Healing fracture of the distal fibula after open reduction internal fixation with a lateral plate and screws. Normal medial and lateral malleoli. Normal tibiotalar articulation and ankle mortise. Normal visualized talus and calcaneus. The visualized subtalar, talonavicular, calcaneocuboid and tarsal articulations are normal. Fiberglass cast obscures soft tissue and bony detail. RAD/Ankle min 3 Views IMPRESSION: Status post open reduction internal fixation of fracture of the posterior tibia and distal fibula. Electronically Signed: Vernon Romero MD at 15:44 EST ,
--- NOTE | 2021-07-24 16:03 | SUR.PHASEI ---
PATIENT AWAITING BED UPSTAIRS WILL MONITOR IS ac17, PHASE 2.
--- NOTE | 2021-07-24 16:48 | PN.HOSP_ITS ---
Subjective Subjective Is a 42-year-old female who slipped on ice about a week ago and sustained a trimalleolar left ankle fracture. Patient had seen her primary care doctor and was medically cleared to proceed with surgery and patient underwent ORIF of the left ankle fracture today by Dr. Joseph. Dr. Joseph reached out and consulte d the Hospitalist service for medical management. Currently the patient is asymptomatic but did have nerve blocks he does not have any feeling in her left leg at this time. Objective Data Objective Data Vital Signs: Vital Signs Temp Pulse Resp BP Pulse Ox 35.8 C L 76 16 143/91 H 100 07/24/21 16:00 07/24/21 16:00 07/24/21 16:00 07/24/21 16:00 07/24/21 16:00 Oxygen Delivery Method Room Air Weight: 90 kg Body Mass Index (BMI) 36.3 Lab / Micro Data Result Diagrams: 07/21/21 10:54 07/21/21 10:54 Labs: Laboratory Results - last 24 hr 07/24/21 11:30: Vitamin D 25-Hydroxy 33.4 Radiography Diagnostic Testing: Radiology Impression Ankle X-Ray 07/24/21 12:28 IMPRESSION: ORIF of the distal tibial fracture Electronically Signed: Eduardo Baez MD at 15:12 EST , Ankle X-Ray 07/24/21 15:30 IMPRESSION: Status post open reduction internal fixation of fracture of the posterior tibia and distal fibula. Electronically Signed: Vernon Romero MD at 15:44 EST , Physical Exam Const Constitutional Narrative: No acute distress and afebrile. Resp normal respiratory effort, no retractions, no use of accessory muscles and clear to auscultation bilaterally Cardio regular rate, regular rhythm, S1 normal heart sound and S2 normal heart sound GI normal to inspection, nondistended, normoactive bowel sounds, soft to palpation, non-tender and non-distended Extremity normal to inspection and full ROM Skin no rashes or lesions noted and no wounds Assessment & Plan Assessment/Plan (1) Displaced trimalleolar fracture of left lower leg, initial encounter for closed fracture: (2) Multiple sclerosis: PLAN: 1. Displaced trimalleolar fracture s/p ORIF today by Dr. Joseph PT OT to evaluate and treat starting on the second. 2. Multiple sclerosis Relapsing remitting type Continue with dimethyl fumarate, baclofen 3. VTE prophylaxis with enoxaparin 4. COVID-19 vaccination status: Patient has been vaccinated for COVID-19. Thank for the consult. The hospital service will follow along during this patient's hospitalization. Charges/Coding Visit Charges OBSV E&M: 98142 Subsequent observation care L2
[2021-07-25 01:00] VITALS: BP 122/72; PULSE 90; RESP 16; TEMP 36.8; O2SAT 94
[2021-07-25 04:58] VITALS: BP 128/74; PULSE 87; RESP 16; TEMP 36.7; O2SAT 96
--- NOTE | 2021-07-25 07:24 | PCM.PROGNOTE ---
Subjective Subjective This 50-year-old female was seen bedside postoperative day #1 open reduction internal fixation of left ankle fracture. She rates her pain as a 3 out of 10. Her regional block is still partially working. She denies fever, chill, nausea, vomiting, shortness of breath, chest pain, urinary retention or constipation or calf pain. Objective Data Objective Data Vital Signs: Vital Signs Temp Pulse Resp BP Pulse Ox 98.1 F 87 16 128/74 H 96 07/25/21 04:58 07/25/21 04:58 07/25/21 04:58 07/25/21 04:58 07/25/21 04:58 Oxygen Delivery Method Room Air Weight: 90 kg Body Mass Index (BMI) 36.3 Intake & Output: Intake and Output for Last 24 Hours 07/23/21 07/24/21 07/25/21 23:59 23:59 23:59 Intake Total 110 / 110 Output Total 600 / 600 400 / 400 Balance -490 / -490 -400 / -400 Lab / Micro Data Result Diagrams: 07/21/21 10:54 07/21/21 10:54 Labs: Laboratory Results - last 24 hr 07/24/21 11:30: Vitamin D 25-Hydroxy 33.4 Radiography Diagnostic Testing: Radiology Impression Ankle X-Ray 07/24/21 12:28 IMPRESSION: ORIF of the distal tibial fracture Electronically Signed: Eduardo Baez MD at 15:12 EST , Ankle X-Ray 07/24/21 15:30 IMPRESSION: Status post open reduction internal fixation of fracture of the posterior tibia and distal fibula. Electronically Signed: Vernon Romero MD at 15:44 EST , Physical Exam Const alert and oriented x3 General Appearance: cooperative Extremity Extremity Narrative: No calf tenderness Capillary refill time to all digits of the left foot are brisk less than 3 seconds. Compartments remain soft to palpation left lower extremity Left lower extremity splint in a rectus position AROM digits x 5 left General Extremity: edema and no tenderness to palpation of joints or extremities; Negative for cyanosis Skin Skin Narrative: No strikethrough noted on the splint or dressing General Skin Exam: Negative for erythema Neuro Neuro Narrative: Epicritic sensation intact to light touch left lower extremity including the toes Psych cooperative and affect normal Assessment & Plan Assessment/Plan (1) Displaced trimalleolar fracture of left lower leg, initial encounter for closed fracture: (2) Left ankle pain: (3) Difficulty in walking: PLAN: This patient was seen postoperative day #1 open reduction internal fixation left ankle fracture. Pain medication was ordered if needed; oxycodone and morphine. She is apprehensive to take pain medication and I recommend considering this prior to complete resolution of extremity block. Antiinflammatory was ordered and she plans to take oral medication. She is stable at this time. If controlled after block is done, she will be discharged home this afternoon. Anticoagulation prophylaxis medication will be ordered for this morning for in house use. We discussed the benefits, risks, and indications for anticoagulation medication for use after discharge and she will continue on her aspirin regimen. Continue Vit D supplementation to optimize healing. I recommend she works with PT and OT to confirm appropriate non weightbearing status prior to discharge home. Scheduled for this morning. Her comorbidities are noted. Hospitalist on consult for medical management is appreciated. She is overall stable at this time. I will follow her closely while in house. Please do not hesitate to call if you have any questions. She will [facility]. Savanah Joseph DPM, [facility] [phone]
[2021-07-25] MEDS: 0.9% Saline Lock 10 ML Syringe IV (07:50)
[2021-07-25] MEDS: Ketorolac 15 MG/ML Vial IV (07:50)
[2021-07-25] MEDS: Cholecalciferol (VIT D3) 25 MCG TABLET (1,000 UNITS) 50 MCG PO (08:29)
[2021-07-25 08:30] VITALS: BP 116/67; PULSE 80; RESP 16; TEMP 36.5; O2SAT 98
[2021-07-25] MEDS: Cyanocobalamin 500 MCG Tablet PO (08:30)
[2021-07-25] MEDS: Acetaminophen 325 MG Tablet 650 MG PO (08:32)
--- NOTE | 2021-07-25 10:47 | CASEMGMT ---
RN KANE SAS ADMINISTRATOR CM to room to meet with patient for initial transition planning/care coordination assessment. EDOUARD MIDDLETON introduced self and role at [facility]. Pt voices understanding and consents to assessment at this time. Pt resting in bed in no distress at this time. Pt is A/O at this time and answers all questions appropriately. Care providers, pharmacy, and demographics verified/updated at this time. PCP: Dr Sorensen Specialists: Dr French--ELECTRONICS TESTER Preferred Pharmacy: [facility] Retail Insurance: Faraz Drummond Prescription Benefit: Yes Living Will/HPOA: Pt does not currently have LW/HCPOA and declines info at this time. LNOK: , [place] Living Arrangements: Lives w/her in one-story home w/4 steps w/railing. Independent prior to fall and injury. Pt and share home tasks. Pt's mother planning to stay w/pt for a few days to help. Transportation: Pt, DME: States has the following DME: built-in shower seat, walker, knee scooter, crutches, W/C Pt states no need for further DME at this time. HHC/SNF: No hx of either. No needs identified. PT/OT notes reviewed. No additional therapy recommended Pt wishes to return home and states has no concerns with going home at time of discharge. CM to follow for any discharge planning/needs. Pt voices no concerns/needs at this time. PLAN: Home w/family support and discharge plans in place. Val PETERSON RN, CM
--- NOTE | 2021-07-25 11:03 | PCM.PN.HOSP ---
Subjective Subjective Follow-up on medical management for trimalleolar left ankle fracture: Patient was seen and examined. Denied any new complaints. Denied any fever or chills. Objective Data Objective Data Vital Signs: Vital Signs Temp Pulse Resp BP Pulse Ox 97.7 F L 80 16 116/67 98 07/25/21 08:30 07/25/21 08:30 07/25/21 08:30 07/25/21 08:30 07/25/21 08:30 Oxygen Delivery Method Room Air Weight: 90 kg Body Mass Index (BMI) 36.3 Intake & Output: Intake and Output for Last 24 Hours 07/23/21 07/24/21 07/25/21 23:59 23:59 23:59 Intake Total 110 / 110 Output Total 600 / 600 400 / 400 Balance -490 / -490 -400 / -400 Lab / Micro Data Result Diagrams: 07/21/21 10:54 07/21/21 10:54 Labs: Laboratory Results - last 24 hr 07/24/21 11:30: Vitamin D 25-Hydroxy 33.4 Radiography Diagnostic Testing: Radiology Impression Ankle X-Ray 07/24/21 12:28 IMPRESSION: ORIF of the distal tibial fracture Electronically Signed: Eduardo Baez MD at 15:12 EST , Ankle X-Ray 07/24/21 15:30 IMPRESSION: Status post open reduction internal fixation of fracture of the posterior tibia and distal fibula. Electronically Signed: Vernon Romero MD at 15:44 EST , Physical Exam Narrative Physical exam: General: Alert, Oriented x3, Cooperative, No apparent distress, Well developed HEENT: Atraumatic Oral: Moist Mucosa Neck: Supple Lungs: Clear to auscultation Cardiovascular: HS I+II, regular, no murmurs Abdomen: Bowel Sounds Present, Soft, Non Tender Extremities: Left lower extremity in a partial cast, GUEVARA-wraps Assessment & Plan Assessment/Plan (1) Displaced trimalleolar fracture of left lower leg, initial encounter for closed fracture: (2) Multiple sclerosis: PLAN: 1. Postop day #1 status post ORIF for displaced trimalleolar fracture Her pain is fairly controlled; podiatry following PT and OT to evaluate and treat 2. Multiple sclerosis, relapsing remitting type Continue with dimethyl fumarate, baclofen 3. DVT prophylaxis with enoxaparin Charges/Coding Visit Charges Inpatient E&M: 79621 Subs Hosp L2
--- NOTE | 2021-07-25 12:49 | PCM.DC ---
Discharge Instructions Follow Up Care Test Results: Test results from this visit will be discussed in further detail at your follow-up appointment, if applicable. Discharge Plan Admission Admit Date/Time: 07/24/21 15:17 Primary Reason for Your Visit: s/p left ankle fracture open reduction internal fixation Attending Provider: Johanny Soni Primary Care Provider: Cass Sorensen Consulting Providers: Abad Costa Instructions Additional Instructions / Restrictions: Maintain nonweightbearing status left lower extremity with use of walker. Keep splint and dressing clean, dry, and intact until follow-up next [facility]. Elevate left lower extremity. Hang heel over stacked pillows or blankets while resting in bed to reduce heel pressure. Place ice pack no more than 15 minutes each hour to the back of the knee for additional pain control. Discharge Orders/Prescriptions Prescriptions: New hydrocodone-acetaminophen 5-300 mg tablet 1 tab PO Q6H PRN (Reason: pain) 5 Days Qty: 20 RF: 0 No Action cyanocobalamin (vitamin B-12) [B-12 DOTS] 500 mcg tablet 500 mcg PO DAILY RF: 0 omega-3 fatty acids [Fish Oil Concentrate] 1,000 mg capsule 1,000 mg PO DAILY RF: 0 baclofen 10 mg tablet 10 mg PO BID PRN (Reason: Muscle Pain) RF: 0 ibuprofen 200 mg capsule 200 mg PO Q6H PRN (Reason: Pain) RF: 0 miscellaneous medical supply Misc 1 ea miscellaneous .prn Qty: 1 RF: 0 cholecalciferol (vitamin D3) 2,000 UNIT capsule 2,000 unit PO DAILY RF: 0 dimethyl fumarate [Tecfidera] 240 capsule,delayed release(DR/EC) 1 cap PO BID RF: 0 aspirin 81 MG tablet,chewable 162 mg PO BID RF: 0 estradiol 0.5 mg tablet 0.5 mg PO DAILY 30 Days Qty: 90 RF: 3 (DME) miscellaneous medical supply Misc See Rx Instructions .ROUTE .MEDSUPPLY Qty: 1 RF: 0 Referrals / Follow Up: Savanah Joseph DPM [STAFF PHYSICIAN] - In 1 Week (Call [phone] sooner if questions or concerns.) Cass Sorensen MD [Primary Care Provider] -
[2021-07-25 13:47] VITALS: BP 113/62; PULSE 93; RESP 16; TEMP 36.4; O2SAT 98
== END 2021-07-25 14:25 ==
LOC: SDC 16:08 → MS3 16:08
PROVIDERS: Admitting Provider Podiatrist; PCP Internal Medicine; Referring Provider Podiatrist; Visit Provider Internal Medicine
PROC: (CPT 27822; principal; 2021-07-24 12:10)
DX: S82.852A Displaced trimalleolar fracture of left lower leg, initial encounter for closed fracture (principal); G35 Multiple sclerosis; W00.0XXA Fall on same level due to ice and snow, initial encounter; R26.2 Difficulty in walking, not elsewhere classified; E66.9 Obesity, unspecified; Z68.36 Body mass index [BMI] 36.0-36.9, adult; Y93.01 Activity, walking, marching and hiking; Y99.9 Unspecified external cause status; Y92.89 Other specified places as the place of occurrence of the external cause; R01.1 Cardiac murmur, unspecified; H46.9 Unspecified optic neuritis; Z79.899 Other long term (current) drug therapy; Z79.82 Long term (current) use of aspirin
CPT/HCPCS: 27822; 64445; 36415; 73610; 76000; 80048; 82306; 85025; 85610; 85730; 93005; 96374; 97162; 97166; 99218; 99251; C1713; J7120; A4216; G0378; G0463; J2405

== ENCOUNTER 2022-01-24 17:30 | Outpatient (RCR) | payer OTHER, BC, SELFPAY ==
--- NOTE | 2021-09-04 18:12 | HP.PTEVAL ---
Patient's Visit Information EMIR SALINAS is a 50 year old F referred to Physical Therapy by Dr. Savanah Joseph DPM with a diagnosis of L ankle ORIF 07/24. Date of Evaluation: 09/04/21 Physical Therapist: Abad Patrick DPT, OCS, CSCS - Visit Plan Frequency: 2-3x /Week Duration: 4-6 Weeks Plan: Pt is NWB L for walking, may bear slight weight for trasnfers. 3x/week for 4-6 weeks for. 1. manual ankle and foot massage and mobs for ROM and PROM and AAROM NWB ex. 2. strength NWB L ankle. 3. Gait training with crutches as needed. Progression of WB when allowed by doctor and gait training - Subjective L ankle ORIF 6 weeks ago 07/15. Slipped on ice. Trimalleolar fracture. 9 days later 07/24 had ORIF. In tall boot since then, has tall boot that is heavy. Started back to work 2 weeks ago and went to shorter boot. Is NWB until further notice 2-6 more weeks. F/U on 09/13. Pain is tolerable 2/10 most of time in the whole ankle. Gets pulses of bigger pain. Had numbness which is improving on the bottom of the foot. Can move toes more. Has relaxing and remitting MS also and that may hinder repair. Sleep is OK in recliner with leg elevated. [employer] is employer and sitting all day which is her job and is 40 hrs. Trying to do some DF at home but not a lot of movement. Hobbies: loves hiking and kayaking and wants to do those. Basic ADLs are going OK herself restroom and dressing OK. needs assist in and out of shower over lip and needs to make sure she doesn' lose balance. Has steps garage to kitchen and they are hard. uses one crutch adn hop to get up with husbands help. Has WC and walker at home as well as crutches. Hops with walker, needs help with crutches. - Pain L ankle Pain Intensity (Out of 10): 2 Pain Intensity Range: 1, 5 - Objective WC back to PT, NWB with walker I. Crutches NWB L with crutches set up appropriately for patient today. I but awkward and holds L knee ext out in front. Steps with Min A up NWB L rail and one crutch. Descends same with CGA. Dons and doffs boot I, incisions healed well and nor drainage or excessive heat or swelling. Swollen expectedly moderately today. AROM L ankle -23 from neutral DF and then 15 degrees into PF. 10 degrees of total inversion/eversion. v nata stiff. PROM slightly better by 2 degrees each but hesitant to let me push today. No real pain. 3/5 strength in available ROM. Metatarsals are very stiff and poor movement as is arthro kinemtaic ankle movement. Big toe with minimal active ROM. Trasnfer sit to stand I unable to do without crutches despite script saying she could WB for trasnfers(mental block) - Balance/Special Test Scores Lower Extremity Functional Score: 20 - Goals Goal 1:: Ankle aROM 2 DF, 50 PF, 25 inv and 15 eversion to show improved fluid dynamics. Goal Time Frame: 4-6 Weeks Goal 2:: Walk as allowed I in community as main method of mobility. Goal Time Frame: 4-6 Weeks Goal 3:: Patient feel 80% better and I community mobility Goal Time Frame: 4-6 Weeks Goal 4:: Plan to start hiking when allowed. Goal Time Frame: 4-6 Weeks - Rehabilitation Potential Physical Therapy Diagnosis: s/p L ankle ORIF Rehabilitation Potential: Fair - Anticipated Interventions Patient/Client Instruction: Educate patient on: Condition, Plan of Care For the Purpose of:: To decrease pain, To increase ROM, To improve muscle performance and motor function, To improve ability of physical actions for home/community/work/leisure, To improve gait and locomotor functions Therapeutic Exercise to Include: Strength training, Balance training, Postural training, Flexibilty training, Gait and locomotor training, Passive ROM, Active ROM For the Purpose of:: To decrease pain, To decrease swelling/inflammation, To improve nutrient delivery to tissue, To improve muscle performance and motor function, To increase tolerance to activity/condition/position, To improve ability of physical actions for home/community/work/leisure, To improve gait and locomotor functions Manual Therapy Techniques to Include: Mobilization, Passive ROM, Soft tissue mobilization For the Purpose of:: To increase ROM Cryotherapy (ice pack, ice massage): Yes Thermo therapy (hot pack): Yes For the Purpose of:: To decrease swelling/inflammation Thank you for the opportunity to evaluate your patient. For Medicare and Medicare HMO plans, please review the plan of care and approve it. It will need to be FAXED BACK to us at [phone] for Medicare purposes. For Medicare only, by signing this I certify the plan of care. Please let me know if there are questions or concerns regarding this plan of care. Physician Signature: Date:
--- NOTE | 2021-10-04 17:32 | HP.PTREVAL ---
Dr. Savanah Joseph, DPM, It has been my pleasure to treat EMIR SALINAS over the last 9 visits for L ankle ORIF 07/24. Please see the progress note below for an update on the physical therapy plan of care! Subjective: Doing OK, 3/10 pain today which is worse than normal but just walked into adn out of office. Using walker to get around in boot WBAT. Does not feel like motion is improving but doing HEP Objective/Function: -12 and 45 PF 15 inv and 5 eversion...improved but still lacking. strength is 4-/5 in all directions. Walks with walker avoiding R step through and lack of ROM makes normal gait challenging but is safe with walker and needs it to walk due to pain anteriorly. Unwilling to be 100% WB L currently due to pain and lack of motion. Appropriate to cotninue POC for 4 more weeks with fair prognosis. Plan Plan: 2x/week for 4 weeks for. 1. Cotninue manual ROM and rollout and mobs to gain ROM particularly DF. 2. Gait training/pregait with R step length and increasing WB in boot. 3. functional strength L ankle and LE. Balance/Gait/Functional tests - Balance/Special Test Scores Lower Extremity Functional Score: 21 Goals Goal 1:: Ankle aROM 2 DF, 50 PF, 25 inv and 15 eversion to show improved fluid dynamics. Goal Time Frame: 4-6 Weeks Goal Progress: Progressing Goal 2:: Walk as allowed I in community as main method of mobility. Goal Time Frame: 4-6 Weeks Goal 3:: Patient feel 80% better and I community mobility Goal Time Frame: 4-6 Weeks Goal Progress: 30% Goal 4:: Plan to start hiking when allowed. Goal Time Frame: 4-6 Weeks Anticipated Interventions Patient/Client Instruction: Educate patient on: Condition, Plan of Care For the Purpose of:: To decrease pain, To increase ROM, To improve muscle performance and motor function, To improve ability of physical actions for home/community/work/leisure, To improve gait and locomotor functions Therapeutic Exercise to Include: Strength training, Balance training, Postural training, Flexibilty training, Gait and locomotor training, Passive ROM, Active ROM For the Purpose of:: To decrease pain, To decrease swelling/inflammation, To improve nutrient delivery to tissue, To improve muscle performance and motor function, To increase tolerance to activity/condition/position, To improve ability of physical actions for home/community/work/leisure, To improve gait and locomotor functions Manual Therapy Techniques to Include: Mobilization, Passive ROM, Soft tissue mobilization For the Purpose of:: To increase ROM Cryotherapy (ice pack, ice massage): Yes Thermo therapy (hot pack): Yes For the Purpose of:: To decrease swelling/inflammation Please do not hesitate to contact me at [phone] by phone or if you have questions or concerns regarding this new plan of care! Sincerely, Abad Patrick, DPT, OCS, CSCS
--- NOTE | 2021-11-01 18:26 | HP.PTREVAL_ITS ---
Dr. Savanah Joseph, DPM, It has been my pleasure to treat EMIR SALINAS over the last 16 visits for L ankle ORIF 07/24. Please see the progress note below for an update on the physical therapy plan of care! Subjective: Feels better after therapy and tight again the next morning. Still stretching at home and walking without boot on. To doctor on 11/12. Is not in any pain unless she is stretching. Using crutches to get around and has 4 feet cane whcih is a little wobbly. Objective/Function: -6 AROM DF L, 40 PF, 12 inversiona nd 8 eversion today. Pt still tends to walk with two crutches and very little L WB in ambualtion limiting Df and short R step length but can do Ok with one crutch and good step length when cued and is safe. Can walk without AD today but hesitant and needs CGA. Steps reciprocal up with rails and down with L with rails. overall still needs more motion to walk normally but is slowly improving. Dynasplint should be considered by doctor office if patient does not have on at home. patient needs to ambulate more WB to help withg ROM and has been hesitant to do that despite having the ability. Appropriate to continue therapy per below POC. Goals appropriate for another 6 weeks and fair prognosis Plan Plan: continue 2x/week for. 1. focus ROM and manual therapy for DF. 2. Gait training with increasing WB L and decreasing UE support to help with function and DF. 3. proprioception and strength L ankle. Balance/Gait/Functional tests - Balance/Special Test Scores Lower Extremity Functional Score: 30 Goals Goal 1:: Ankle aROM 2 DF, 50 PF, 25 inv and 15 eversion to show improved fluid dynamics. Goal Time Frame: 4-6 Weeks Goal Progress: Progressing, slow, approp Goal 2:: Walk as allowed I in community as main method of mobility. Goal Time Frame: 4-6 Weeks Goal Progress: needs 2 crutches Goal 3:: Patient feel 80% better and I community mobility Goal Time Frame: 4-6 Weeks Goal Progress: 50%, approp Goal 4:: Plan to start hiking when allowed. Goal Time Frame: 4-6 Weeks Goal Progress: too early Goal 5:: Walk without AD in community with good R step length Goal Time Frame: 4-6 Weeks Goal Progress: NEW GOAL Anticipated Interventions Patient/Client Instruction: Educate patient on: Condition, Plan of Care For the Purpose of:: To decrease pain, To increase ROM, To improve muscle performance and motor function, To improve ability of physical actions for home/community/work/leisure, To improve gait and locomotor functions Therapeutic Exercise to Include: Strength training, Balance training, Postural t raining, Flexibilty training, Gait and locomotor training, Passive ROM, Active ROM For the Purpose of:: To decrease pain, To decrease swelling/inflammation, To improve nutrient delivery to tissue, To improve muscle performance and motor function, To increase tolerance to activity/condition/position, To improve ability of physical actions for home/community/work/leisure, To improve gait and locomotor functions Manual Therapy Techniques to Include: Mobilization, Passive ROM, Soft tissue mobilization For the Purpose of:: To increase ROM Cryotherapy (ice pack, ice massage): Yes Thermo therapy (hot pack): Yes For the Purpose of:: To decrease swelling/inflammation Please do not hesitate to contact me at [phone] by phone or if you have questions or concerns regarding this new plan of care! Sincerely, Abad Patrick, DPT, OCS, CSCS
--- NOTE | 2021-11-29 17:53 | HP.PTREVAL ---
Dr. Savanah Joseph, DPM, It has been my pleasure to treat EMIR SALINAS over the last 23 visits for L ankle ORIF 07/24. Please see the progress note below for an update on the physical therapy plan of care! Subjective: I feel like I have not made much progress. Heel feels better, anterior ankle is what limits her. No pain at rest. Walking at work with cane and using cane at home. Walking in clinic without AD feels about the same. Sleep is OK. Stretching and strengthening at home. To doctor in a week and a half. Objective/Function: -12 AROM PF and -9 PROM today, still very tight into DF and this is her main limiting factor as she feels this anteriorly at the ankle. Weakness in PFers apparent at 3+/5 adn ev/inv 4- and DF 4/5. Inversion and eversion funcitonal ROM at 8 inv and 12 eversion. Walks without AD with short R step length avoidng L DF as able but very little discomfort . Steps reciprocal but cheats keeping L PFd descending to avoid discomfort. goals appropriate with new timeframe and fair prognosis. Plan Plan: Fair progress but slow on ROM whcih is her limiting factor. Cotninue 2x/week for 4 weeks for manaul therapy for ROM DF and strength of PFers. gait training and stair training. Dynasplint for DF appropriate for patient and will ask doctor for prescription and then we can facilitate that process if doctor desires. Will get new script for more therapy at f/u 12/11 Balance/Gait/Functional tests - Balance/Special Test Scores Lower Extremity Functional Score: 37 Goals Goal 1:: Ankle aROM 2 DF, 50 PF, 25 inv and 15 eversion to show improved fluid dynamics. Goal Time Frame: 4-6 Weeks Goal Progress: Still approp. Goal 2:: Walk as allowed I in community as main method of mobility. Goal Time Frame: 4-6 Weeks Goal Progress: cane met Goal 3:: Patient feel 80% better and I community mobility Goal Time Frame: 4-6 Weeks Goal Progress: 70%, approp Goal 4:: Plan to start hiking when allowed. Goal Time Frame: 4-6 Weeks Goal Progress: too early Goal 5:: Walk without AD in community with good R step length Goal Time Frame: 4-6 Weeks Goal Progress: clinic, progressing. Anticipated Interventions Patient/Client Instruction: Educate patient on: Condition, Plan of Care For the Purpose of:: To decrease pain, To increase ROM, To improve muscle performance and motor function, To improve ability of physical actions for home/community/work/leisure, To improve gait and locomotor functions Therapeutic Exercise to Include: Strength training, Balance training, Postural training, Flexibilty training, Gait and locomotor training, Passive ROM, Active ROM For the Purpose of:: To decrease pain, To decrease swelling/inflammation, To improve nutrient delivery to tissue, To improve muscle performance and motor function, To increase tolerance to activity/condition/position, To improve ability of physical actions for home/community/work/leisure, To improve gait and locomotor functions Manual Therapy Techniques to Include: Mobilization, Passive ROM, Soft tissue mobilization For the Purpose of:: To increase ROM Cryotherapy (ice pack, ice massage): Yes Thermo therapy (hot pack): Yes For the Purpose of:: To decrease swelling/inflammation Please do not hesitate to contact me at [phone] by phone or if you have questions or concerns regarding this new plan of care! Sincerely, Abad Patrick, DPT, OCS, CSCS
--- NOTE | 2021-12-27 17:59 | HP.PTREVAL ---
Dr. Savanah Joseph, DPM, It has been my pleasure to treat EMIR SALINAS over the last 31 visits for L ankle ORIF 07/24. Please see the progress note below for an update on the physical therapy plan of care! Subjective: Using cane at times and no AD at other times. Pain level is 0/10 at rest, sore is much of time and 2/10. Still tight in pulling it up into DF. Walks at home without aD. Got night splint for 20 minutes. back to doctor on 01/11. Objective/Function: -6 DF to 50 PF. 11 eversion and 18 inversion. Walks with short R step length and avoids L push off but improving gait pattern overall. AROM improving by 6 degrees compared to last recheck and is slow but defintieve. Weak with gastroc on L unable to heel raise on that side. Plan Plan: 2x/week for 4 weeks patient wants and is appropriate to continue. Work n manual for aggressive DF ROM, aggressive gastroc strength to help with gait pattern. Doctor should consider dynasplint. Will need prescription for continue PT and dynasplint if doctor wishes at next f/u in two weeks. Appropriate for continued therapy toward new goal and fair prognosisfor slow progression Balance/Gait/Functional tests - Balance/Special Test Scores Lower Extremity Functional Score: 46 Goals Goal 1:: Ankle aROM 2 DF, 50 PF, 25 inv and 15 eversion to show improved fluid dynamics. Goal Time Frame: 4-6 Weeks Goal Progress: Progressing Goal 2:: Walk as allowed I in community as main method of mobility. Goal Time Frame: 4-6 Weeks Goal Progress: no aD most of time. Goal 3:: Patient feel 80% better and I community mobility Goal Time Frame: 4-6 Weeks Goal Progress: 70%, approp Goal 4:: Plan to start hiking when allowed. Goal Time Frame: 4-6 Weeks Goal Progress: met functionally flat gianna Goal 5:: Walk without AD in community with good R step length Goal Time Frame: 4-6 Weeks Goal Progress: Goal Met Goal 6:: netural DF and heel off ground with heel raise to get walking without deviations. Goal Time Frame: 4-6 Weeks Goal Progress: NEW Anticipated Interventions Patient/Client Instruction: Educate patient on: Condition, Plan of Care For the Purpose of:: To decrease pain, To increase ROM, To improve muscle performance and motor function, To improve ability of physical actions for home/community/work/leisure, To improve gait and locomotor functions Therapeutic Exercise to Include: Strength training, Balance training, Postural training, Flexibilty training, Gait and locomotor training, Passive ROM, Active ROM For the Purpose of:: To decrease pain, To decrease swelling/inflammation, To improve nutrient delivery to tissue, To improve muscle performance and motor function, To increase tolerance to activity/condition/position, To improve ability of physical actions for home/community/work/leisure, To improve gait and locomotor functions Manual Therapy Techniques to Include: Mobilization, Passive ROM, Soft tissue mobilization For the Purpose of:: To increase ROM Cryotherapy (ice pack, ice massage): Yes Thermo therapy (hot pack): Yes For the Purpose of:: To decrease swelling/inflammation Please do not hesitate to contact me at [phone] by phone or if you have questions or concerns regarding this new plan of care! Sincerely, Abad Patrick, DPT, OCS, CSCS
--- NOTE | 2022-01-24 18:22 | HP.PTDCSUM ---
It has been my pleasure to treat EMIR SALINAS referred by Dr. Savanah Joseph DPM, with the diagnosis of L ankle ORIF 07/24 for a total of 38 visit(s). Discharge Date: 01/24/22 Please see the following information for a summary of their discharge status. Subjective: I think that those new exercises are helping. I did some deep squatting today at work and it really seems to loosen it up. Still get stiff after sitting a while though. L ankle Pain Intensity (Out of 10): 2 % Improvement: 75 Objective/Function: Added closed chain squat, lunge, step patterns to improve functional dorsiflexion range of motion. Will benefit from continued emphasis on this. Goal 1:: Ankle aROM 2 DF, 50 PF, 25 inv and 15 eversion to show improved fluid dynamics. Goal Progress: Progressing Goal 2:: Walk as allowed I in community as main method of mobility. Goal Progress: no aD most of time. Goal 3:: Patient feel 80% better and I community mobility Goal Progress: Goal Met Goal 4:: Plan to start hiking when allowed. Goal Progress: met functionally flat gianna Goal 5:: Walk without AD in community with good R step length Goal Progress: Goal Met Goal 6:: netural DF and heel off ground with heel raise to get walking without deviations. Goal Progress: NEW Plan: Re-assess with Abad Patrick DPT If there are questions or concerns regarding this patient's physical therapy, please feel free to call me at [phone]. Thank you for the referral of this patient. Sincerely, Abad Patrick, RACHAEL, OCS, CSCS Balance/Gait/Functional tests - Balance/Special Test Scores Lower Extremity Functional Score: 47
== END 2022-01-24 19:00 | disposition home or self-care (01) ==
LOC: PT 17:30
PROVIDERS: PCP Internal Medicine; Referring Provider Podiatrist; Visit Provider Podiatrist
DX: Z98.890 Other specified postprocedural states (principal)
CPT/HCPCS: 97110; 97116; 97140; 97162; 97164; 97530

== ENCOUNTER → 2022-01-25 | Outpatient (CLI) | payer OTHER, BC, SELFPAY ==
--- NOTE | 2022-01-25 16:52 | MRI_ITS ---
STUDY: MRI LEFT ANKLE WITHOUT CONTRAST REASON FOR EXAM: Female, 51 years old. LEFT ankle pain TECHNIQUE: Standardized fat and water weighted pulse sequences were obtained in all 3 orthogonal planes. COMPARISON: X-ray 07/24/2021 FINDINGS: Normal subcutis adipose space. Normal posterior tibialis tendon. Normal flexor digitorum longus tendon. Normal flexor hallucis longus tendon. Normal peroneus longus and brevis tendons. Normal tibialis anterior tendon. Normal extensor hallucis longus tendon. Normal extensor digitorum longus tendons. Normal Achilles tendon and teno-osseous insertion. Normal plantar fascia. Normal plantar calcaneal tubercles. Normal intrinsic muscles of the rearfoot. Normal distal tibiofibular syndesmotic ligamentous complex. There is scarring with thickening of the anterior talofibular ligament consistent with a remote sprain. Normal subtalar ligaments and sinus tarsi. Normal deltoid ligamentous complexes. Normal plantar calcaneonavicular (spring) ligament. Normal tibiotalar articulation. Normal talar dome. Normal subtalar articulations. Normal talonavicular articulation. Normal calcaneocuboid articulation. Normal navicular-cuneiform articulations. Healed fracture the distal fibula after open reduction internal fixation with a lateral plate and screws. 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 Electronically Signed: Vernon Romero MD at 11:26 EDT ,
== END | disposition home or self-care (01) ==
LOC: MRI 16:19
PROVIDERS: PCP Internal Medicine; Visit Provider Podiatrist
DX: M25.572 Pain in left ankle and joints of left foot (principal); M25.672 Stiffness of left ankle, not elsewhere classified; S82.852A Displaced trimalleolar fracture of left lower leg, initial encounter for closed fracture
CPT/HCPCS: 73721

== ENCOUNTER → 2022-04-01 | Outpatient (CLI) | payer OTHER, BC, SELFPAY ==
--- NOTE | 2022-04-01 16:45 | CT_ITS ---
EXAM: CT LEFT LOWER EXTREMITY WITHOUT INTRAVENOUS CONTRAST CLINICAL INDICATION: SCREENING TECHNIQUE: Helically acquired images were obtained of the left lower extremity without intravenous contrast. 2-D reformats were performed by the technologist. CTDIvol = ( 15.35 ) mGy, DLP = ( 347.31 ) mGycm This CT exam was performed using one or more of the following dose reduction techniques: automated exposure control, adjustment of the mA and/or kV according to patient size, and/or use of iterative reconstruction technique. This report was created using [employer] report [email or web address] technology. COMPARISON: None. FINDINGS: BONES/JOINTS: Lateral sideplate and multiple screw fixation of a prior fracture of the distal fibula with no residual fracture lucency identified. Preservation of the joint space. Moderate tibiotalar joint effusion more prominent anteriorly. SOFT TISSUES: Unremarkable. No soft tissue swelling or gas. No radiopaque foreign body. VASCULATURE: Venous screws traverse the distal tibia. OTHER FINDINGS: Large plantar and posterior calcaneal defects. CT/Extremity Lower without Contra IMPRESSION: Lateral sideplate and multiple screw fixation of a prior fracture of the distal fibula with no residual fracture lucency identified. Moderate tibiotalar joint effusion is more prominent anteriorly. Electronically Signed: Alexx Tolentino MD at 4:38 EST ,
== END | disposition home or self-care (01) ==
LOC: CT 16:44
PROVIDERS: PCP Internal Medicine; Referring Provider Podiatrist; Visit Provider Podiatrist
DX: S82.852K Displaced trimalleolar fracture of left lower leg, subsequent encounter for closed fracture with nonunion (principal); X58.XXXD Exposure to other specified factors, subsequent encounter
CPT/HCPCS: 73700

== ENCOUNTER 2022-08-23 06:02 | Day surgery (SDC) | payer OTHER, BC, SELFPAY ==
--- NOTE | 2022-08-12 06:57 | EKG12_ITS ---
Test Reason : PREOP Blood Pressure : / mmHG Vent. Rate : 081 BPM Atrial Rate : 081 BPM P-R Int : 150 ms QRS Dur : 072 ms QT Int : 358 ms P-R-T Axes : 057 047 046 degrees QTc Int : 415 ms Normal sinus rhythm Normal ECG Confirmed by MINO MEDINA, HAYLEY ([id number]), editor map TAWANNA RIVAS ([id number]) on 08/12/2022 12:48:51 PM Referred By: Cass Sorensen Confirmed By:HAYLEY HERZOG MD
[2022-08-23] VITALS (7 sets, daily range): BP systolic 134–143; BP diastolic 76–91; PULSE 76–86; RESP 16–18; TEMP 36–36.4; O2SAT 94–100; BMI 38.9
[2022-08-23] MEDS: Lactated Ringers 1,000 ML 15 ML IV (06:44)
--- NOTE | 2022-08-23 07:38 | RAD_ITS ---
STUDY: X-RAY - LEFT ANKLE REASON FOR EXAM: Female, 51 years old. Hardware removal and syndesmotic stabilization.. TECHNIQUE: 2 view(s) of the ankle. COMPARISON: Comparison is made with prior study dated July 24, 2021. FINDINGS: The patient is status post removal of the plate and screw fixation device overlying the distal fibula with syndesmotic stabilization.. RAD/Ankle 2 Views IMPRESSION: Hardware removal of the distal fibula with syndesmotic stabilization. Electronically Signed: Denzel Amato MD at 13:02 EDT ,
[2022-08-23] MEDS: Bupivacaine 0.25% 30 ML Vial (07:54)
[2022-08-23] MEDS: Bacitracin 500 UNITS/GM PACKET ×2 (08:28)
--- NOTE | 2022-08-23 10:03 | OP.PCM_ITS ---
Problems Associated Problem List Diagnoses (1) Painful orthopaedic hardware: (2) Syndesmotic disruption of left ankle: (3) Left ankle pain: Report of Operation Date of Procedure: 08/23/22 Pre-Operative Diagnosis: 1. Painful retained hardware left lateral ankle. 2. Left ankle syndesmotic instability 3. Left ankle pain Post-Operative Diagnosis: Same Surgery/Procedure Performed:: 1. Removal painful retained hardware left ankle 2. Left ankle syndesmotic stabilization 3. Left ankle arthroscopy Description of Surgical Findings:: Patient had diffuse instability to the ankle syndesmosis appreciated on AP and mortise imaging. Approximately 1 cm diastases from the fibula to the tibia. Upon removal of the fibular plate the syndesmosis was restored using combination of 2 tight ropes and a 2 hole plate. Ankle arthroscopic debridement yielded diffuse chronic synovitis focus at the anterior medial ankle joint. Upon debridement there is noted to be improved range of motion and less scar tissue to the site. Surgeon: Manny Aguiar pecan huller: None (dago) pecan huller: Dago Eid Type of Anesthesia: General Special Medications: 30 cc quarter percent Marcaine plain Specimen's removed: None left fibular plate and 7 screws removed Drains: None Estimated Blood Loss (mL): Minimal Description of Procedure: Patient brought back the operating placed comfortably supine position on the operating room table. Patient induced under general anesthesia. Well-padded light left thigh tourniquet applied. Left lower extremity was hip bumped in position to knock out any external rotation. Left lower extremity scrubbed prepped draped using typical aseptic fashion. Left lower extremity was elevated exsanguinated tourniquet inflated 300 mmHg. Total tourniquet time was noted be less than 2 hours. Using the same posterior lateral incision as the initial surgery this incision was made with a #15 blade through epidermis dermis subcutaneous tissue deep down to the level of the posterior lateral fibular plate. 4. Fibular plate was dissected and exposed using blunt dissection until all 7 screws could be identified these were used removed using [employer] hardware removal kit. The plate was subsequently removed and this was confirmed using fluoroscopic imaging. Any bleeders were cauterized and care was taken to avoid any neurovascular structures in the site. At this time it was noted that the syndesmosis was grossly stable unstable as noted by diastases between the tibia and the fibula. Using [id number] reduction forceps the fibula was reduced and in combination with a 2 hole plate to tight ropes were applied using manufactures guidelines. Upon removal of [id number] reduction forceps fluoroscopic imaging and clinical stressing of the site demonstrated rigid christianity of the syndesmotic function and closing down of the diastases between the distal tibia and fibula. Specifically dorsiflexion external rotati on stressing of the ankle was performed under live fluoroscopic imaging and yielded stable syndesmosis. Next, this incision was closed using simple interrupted buried technique to deep tissue. This was performed with 2-0 Vicryl on a blunt needle. Followed by subcutaneous closure with simple interrupted technique. Followed by skin closure with horizontal mattress using 3-0 nylon. Horizontal mattress. Attention to the taken to the ankle joint where the joint was insufflated with approximately 20 cc of normal sterile saline from an anterior medial portal this portal was made with a 15 blade and deepened using hemostats the joint was ultimately penetrated with trocar and obturator and entered with the Chantelle scope. There is diffuse scarring and chronic synovitis the scope was taken from medial to lateral across the anterior ankle joint and a second portal was made avoiding the superficial peroneal nerve incision was made a stab incision with a 15 blade deepened with hemostats down to level of the joint capsule and shaver was entered and any chronic synovitic tissue was debrided and there is notably improved range of motion and flow of the joint upon debridement. No obvious joint defects noted such as osteochondral defects. Scope was removed and all other equipment was removed incisional site after hemostasis was noted with closed using over and over nylon stitches. Next ankle block was performed using 30 cc 0.25% Marcaine plain. Incision was dressed with bacitracin Adaptic 4 x 4's Kerlix and a single layer Arias compression dressing. Patient transferred to PACU vital signs stable and vascular status intact all digits for further monitoring prior to discharge. Patient tolerated procedure and anesthesia well.
[2022-08-23] MEDS: oxyCODONE 5 MG Tablet 10 MG PO (12:49)
== END 2022-08-23 13:24 | disposition home or self-care (01) ==
LOC: SDC 06:02 → AC 06:02
PROVIDERS: PCP Internal Medicine; Referring Provider Podiatrist; Visit Provider Podiatrist
PROC: (CPT 29999; principal; 2022-08-23 07:15)
DX: T84.84XA Pain due to internal orthopedic prosthetic devices, implants and grafts, initial encounter (principal); G35 Multiple sclerosis; S93.402A Sprain of unspecified ligament of left ankle, initial encounter; M25.372 Other instability, left ankle; E66.8 Other obesity; Z68.38 Body mass index [BMI] 38.0-38.9, adult; Z79.82 Long term (current) use of aspirin; Z79.899 Other long term (current) drug therapy; R03.0 Elevated blood-pressure reading, without diagnosis of hypertension
CPT/HCPCS: 27829; 20680; 29898; 01480; 73600; 76000; 93005; C1713; J7120; J2405

== ENCOUNTER 2022-10-28 21:10 | Emergency (ER) | payer OTHER, BC, SELFPAY ==
[2022-10-28 21:10] VITALS: BP 170/114; PULSE 84; RESP 15; TEMP 36.1; O2SAT 97; BMI 39.0
--- NOTE | 2022-10-28 21:41 | EX.ED.DYSGE1 ---
HPI History of Present Illness Chief Complaint: Flank Pain Informant: patient Narrative Narrative: Patient presents with right flank pain. She states she may have had a little bit of pain in the right flank yesterday but it was very mild. This morning it increased more. It has moved from the right flank and now more toward the right lower quadrant. She states she has been having nausea and vomiting. She really has not been able to keep much down today. She has had kidney stones although its been a while. She has had lithotripsy for one of them. This does remind her of a kidney stone. She has also had hysterectomy and cholecystectomy in the past. She does not know anyone who is ill. No diarrhea. No fevers. Nothing really makes the pain come or go. PFSH [facility] Medical History Allergic dermatitis Bilateral headaches Bilateral nephrolithiasis Heart murmur History of kidney stones History of steroid therapy Multiple sclerosis Non-smoker Optic neuritis Wears contact lenses Wears glasses Home Medications cholecalciferol (vitamin D3) 50 mcg (2,000 unit) capsule 2,000 unit PO DAILY 12/10/18 [History Last Taken Unknown] dimethyl fumarate 240 mg capsule,delayed release (Tecfidera) 1 cap PO BID MS 12/10/18 [History Last Taken Unknown] cyanocobalamin (vitamin B-12) 500 mcg tablet (B-12 DOTS) 500 mcg PO DAILY 10/28/19 [History Last Taken Unknown] baclofen 10 mg tablet 10 mg PO BID PRN Muscle Pain 06/08/20 [History Last Taken Unknown] ibuprofen 200 mg capsule 200 mg PO Q6H PRN Pain 07/05/21 [History Last Taken Unknown] vitamin K2 45 mcg capsule 45 mcg PO DAILY 03/01/22 [History Last Taken Unknown] aspirin 81 mg tablet,delayed release 162 mg PO DAILY #28 tabs 08/23/22 [Rx Last Taken Unknown] naproxen 500 mg tablet (Naprosyn) 500 mg PO BID PRN pain #20 tabs 10/28/22 [Rx Last Taken Unknown] ondansetron 4 mg disintegrating tablet 4 mg PO Q8H PRN PRN Nausea #10 tabs 10/28/22 [Rx Last Taken Unknown] oxycodone-acetaminophen 5 mg-325 mg tablet 1 tab PO Q6H PRN PRN Pain 3 days #12 TABLETS 10/28/22 [Rx Last Taken Unknown] tamsulosin 0.4 mg capsule (Flomax) 0.4 mg PO DAILY #7 caps 10/28/22 [Rx Last Taken Unknown] Allergy/AdvReac Type Severity Reaction Status Date / Time No Known Allergies Allergy Verified 10/28/22 21:13 Family History Grandfather Brain cancer Father CVA (cerebral vascular accident) Diabetes Grandmother Ovarian cancer Other Asthma Cancer Hyperlipemia Hypertension Kidney disease Thyroid disorder Surgical History History of ankle surgery History of cholecystectomy History of endoscopy History of hysterectomy History of lithotripsy History of right oophorectomy Social History Smoking Status: Never smoker alcohol intake: current alcohol intake frequency: holidays/special occasions only substance use type: does not use caffeine: Yes what type of physical activity do you participate in: walking frequency: 3-4 times per week seatbelt use: always do you feel safe at home: Yes additional social history: - [place] 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 Some specific details below. Constitutional: No recent fevers or chills. No malaise EYE: No visual complaints or pain. ENT: No difficulty swallowing. No swelling. No pain. No GERD symptoms. CV: No chest pain or palpitations. Respiratory: No dyspnea. No hemoptysis. No difficulty taking breaths. GI: Please see history of present illness. : No frequency dysuria or hematuria. She has not seen blood in the urine. Musculoskeletal: No recent trauma. No pains. Skin: No rash. Nondiaphoretic. Neuro: No weakness or numbness. Endocrine: No polyuria or polydipsia. EXAM Physical Exam Narrative Exam Narrative: CONSTITUTIONAL: Patient is nontoxic in appearance. The patient looks comfortable but she does look like she has some discomfort or just does not feel well. HEENT: No notable trauma. Mucous membranes do look a bit dry. EYES: No conjunctival injection. No proptosis. CARDIOVASCULAR: Regular rate. Regular rhythm. No notable murmur. No JVD. RESPIRATORY: No respiratory distress. Breathing is unlabored. No wheezes. No rhonchi. No rales. No pain with a deep breath. GASTROINTESTINAL: Not distended. Bowel sounds are normal. No tenderness. No guarding. No rebound. No palpable mass. No bruit. Despite healing pain she does not really have much tenderness in the right side. GENITOURINARY: No tenderness over the bladder. Mild right-sided CVA tenderness. No rashes are noted no skin changes. MUSCULOSKELETAL: Atraumatic. No peripheral edema. No cord. No tenderness along the deep venous system. No asymmetry. NEUROLOGICAL: Patient is alert and appropriate. No focal deficit noted. SKIN: No noted rashes. No diaphoresis. PSYCHIATRIC: Patient is calm. Mood is appropriate. Const Vital Signs: 10/28/22 21:10 Temperature 97.0 F L Temperature Source Temporal Pulse Rate 84 Respiratory Rate 15 Blood Pressure 170/114 H Blood Pressure Mean 132 Pulse Ox 97 Oxygen Delivery Method Room Air MDM MDM MDM Narrative Medical decision making narrative: My independent interpretation the patient's CT shows significant hydronephrosis stranding and about a 3 or 4 mm stone in the proximal to mid ureter on the right. The left side shows a very large stone within the renal pelvis but no inflammatory changes and she has no pain there. Final reading by radiology is similar. Patient CBC shows minimal nonspecific elevation of her white count that can be demargination and mild dehydration. Electrolytes showed a bump of creatinine above her baseline now at 1.05. She was given IV fluids here. Glucose is just minimally up at 139. Liver function test showed minimal nonspecific elevation of the alkaline phosphatase at 123. Patient was rechecked. She is feeling much better. Nausea is gone. Her pain is significantly down. She is gotten up to walk to the bathroom. We are pending the urinalysis at this time. I will patient plans to follow-up with Dr. Daniels who she has seen before. Urine is clear. Only 25 leukocyte Estrace. Negative nitrites. There is occult blood. This is consistent with kidney stone but no indication of infection. Lab Data Attestation: I reviewed the patient's lab results. Labs: Laboratory Results - last 24 hr 10/28/22 10/28/22 10/28/22 21:20 21:20 22:55 WBC 12.2 H RBC 4.83 Hgb 13.1 Hct 40.6 MCV 84.1 MCH 27.1 MCHC 32.3 RDW Std Deviation 42.1 RDW Coeff of Felisha 13.6 Plt Count 259 MPV 8.9 Immature Gran % (Auto) 0.400 Neut % (Auto) 90.7 H Lymph % (Auto) 5.8 L [place] % (Auto) 2.7 Eos % (Auto) 0.2 Baso % (Auto) 0.2 Absolute Neuts (auto) 11.1 H Absolute Lymphs (auto) 0.71 L Nucleated RBC % 0 Sodium 137 Potassium 4.2 Chloride 107 Carbon Dioxide 26.0 Anion Gap 4 L BUN 24 H Creatinine 1.05 H Estim Creat Clear Calc 51.26 Est GFR (MDRD) Af Amer 71 Est GFR (MDRD) Non-Af 59 L BUN/Creatinine Ratio 22.9 H Glucose 139 H Calcium 9.3 Total Bilirubin 0.40 AST 21 ALT 24 Alkaline Phosphatase 123 H Total Protein 8.0 Albumin 4.0 Globulin 4.0 Albumin/Globulin Ratio 1.0 Urine Color Yellow Urine Clarity Clear Urine pH 7.0 Ur Specific [place] 1.010 Urine Protein 30 H Urine Glucose (UA) Normal Urine Ketones 50 H Urine Occult Blood 250 H Urine Nitrite Negative Urine Bilirubin Negative Urine Urobilinogen Normal Ur Leukocyte Esterase 25 H Radiography Diagnostic Testing: Clinical Impression(s) from Imaging Studies Abdomen/Pelvis CT 10/28/22 22:18 IMPRESSION: Nonobstructing 4 and 3 mm obstructing proximal right ureter foreign 3 mm stones resulting in asymmetric right renal enlargement and significant perinephric stranding density. Numerous additional right and left renal stones to include left renal staghorn calculus. Distended left superior renal calyces without hydroureter. Electronically Signed: Nahun Fraire DO at 22:40 EDT , Discharge Plan Triage Chief Complaint: Flank Pain ED Provider: Dilip Busby Dx/Rx/DC Orders Clinical Impression: Kidney stone on right side, Creatinine elevation, Nausea and vomiting Instructions: ED Kidney Stone w/ Colic Prescriptions: New oxycodone-acetaminophen [oxycodone-acetaminophen] 5-325 mg tablet 1 tab PO Q6H PRN PRN (Reason: Pain) 3 Days Qty: 12 0RF ondansetron [ondansetron] 4 mg tablet,disintegrating 4 mg PO Q8H PRN PRN (Reason: Nausea) Qty: 10 0RF naproxen [Naprosyn] 500 mg tablet 500 mg PO BID PRN (Reason: pain) Qty: 20 0RF tamsulosin [Flomax] 0.4 mg capsule 0.4 mg PO DAILY Qty: 7 0RF No Action cyanocobalamin (vitamin B-12) [B-12 DOTS] 500 mcg tablet 500 mcg PO DAILY baclofen 10 mg tablet 10 mg PO BID PRN (Reason: Muscle Pain) ibuprofen 200 mg capsule 200 mg PO Q6H PRN (Reason: Pain) vitamin K2 45 mcg capsule 45 mcg PO DAILY cholecalciferol (vitamin D3) 2,000 UNIT capsule 2,000 unit PO DAILY dimethyl fumarate [Tecfidera] 240 capsule,delayed release(DR/EC) 1 cap PO BID aspirin 81 mg tablet,delayed release (DR/EC) 162 mg PO DAILY Qty: 28 0RF Primary Care Provider: Cass Sorensen Referrals: Patience Mariano MD [Med Staff - Active Staff] - As soon as possible Cass Sorensen MD [Primary Care Provider] - Disposition Disposition: Home, Self Care
[2022-10-28 21:54] LABS: Absolute Lymphocyte Count 0.71 X10^3/uL (0.83-4.51); Absolute Neutrophil Count 11.1 X10^3/uL (2.0-7.7); Basophil# 0.03 X10^3/uL; Basophil% 0.2 % (0-1); Eosinophil# 0.03 X10^3/uL; Eosinophils% 0.2 % (0-5); Hematocrit 40.6 % (37-47); Hemoglobin 13.1 g/dL (12.0-15.0); Lymphocyte # 0.71 X10^3/ul (0.83-4.51); Lymphocyte % 5.8 % (19-41); Mean Corp Hgb Conc 32.3 g/dL (32-36); Mean Corpuscular Hgb 27.1 pg (27.0-32.0); Mean Corpuscular Volume 84.1 fL (81-99); Mean Platelet Vol. 8.9 fl (6.2-12.0); Monocyte# 0.33 X10^3/uL; Monocyte% 2.7 % (0-10); NRBC Flagged by Analyzer 0 % (0-5); Neutrophil # 11.09 X10^3/uL (2.7-7.7); Neutrophil % 90.7 % (47-70); Platelet Count 259 K/mm3 (150-450); RBC Distribution Width CV 13.6 % (11.6-14.6); RBC Distribution Width SD 42.1 fl (35.1-43.9); Red Blood Count 4.83 M/mm3 (4.2-5.4); White Blood Count 12.2 K/mm3 (4.4-11.0)
[2022-10-28] MEDS: 0.9% Normal Saline 1,000 ML 1000 ML IV (22:01)
[2022-10-28] MEDS: Ondansetron 4 MG/2 ML Vial IV (22:02)
[2022-10-28] MEDS: Ketorolac 15 MG/ML Vial IV (22:02)
[2022-10-28] MEDS: Morphine 4 MG/ML Syringe IV (22:02)
[2022-10-28 22:14] LABS: AST(SGOT) 21 U/L (15-37); Alanine Aminotransfer ALT/SGPT 24 U/L (13-56); Alkaline Phosphatase 123 U/L (45-117); Anion Gap 4 (5-15); BUN 24 mg/dL (7-18); BUN/Creat Ratio 22.9 RATIO (10-20); Calcium,Total 9.3 mg/dL (8.5-10.1); Chloride 107 mmol/L (98-107); Creatinine, Serum 1.05 mg/dL (0.55-1.02); EST Glomerular Filtration Rate 59 mL/min (>60); Est Glom Filt Rate - Afr Amer 71 mL/min (>60); Estimated Creatinine Clearance 51.26 ml/min; Glucose 139 mg/dL (74-106); Potassium 4.2 mmol/L (3.5-5.1); Sodium Level 137 mmol/L (136-145)
--- NOTE | 2022-10-28 22:18 | CT_ITS ---
INDICATION: Pain EXAMINATION: CT ABDOMEN AND PELVIS WITHOUT CONTRAST - CT Abdomen And Pelvis W/O Contrast Injection TECHNIQUE: Helically acquired images were obtained of the abdomen and pelvis without oral or IV contrast. A radiation dose optimization technique was used for this scan. IV Contrast dosage and agent: None. Oral contrast: None. COMPARISON: February 15, 2019 renal ultrasound. FINDINGS: LOWER CHEST: Lung bases are clear. No cardiomegaly or pericardial effusion. LIVER: Homogeneous. No focal mass. GALLBLADDER AND BILIARY TREE: No calcified gallstones. No gallbladder distension or wall edema. No intra- or extrahepatic biliary ductal dilation. PANCREAS: No focal cystic or solid mass. SPLEEN: Normal size without focal cystic or solid mass. Hilar splenule noted. ADRENAL GLANDS: No nodules. KIDNEYS, URETERS and BLADDER: 4 mm obstructing stone proximal right ureter. Nonobstructing 3 mm stone seen proximal to this obstructing stone in the proximal third of the right ureter. There is at least moderate hydronephrosis right kidney with decreased renal density and significant right perinephric stranding. There are additional calcifications in the bilateral kidneys to include a 1.3 cm thick, at least 2.6 cm length staghorn calculus in the left renal pelvis. Other large calcifications seen in inferior calyces left kidney. Numerous nonobstructing stones in the right kidney, mostly lower pole. Superior calyces left kidney are abnormally distended; caliectasis. There is no left-sided hydroureter. Urinary bladder is normal in appearance. Pelvic phleboliths noted. PERITONEUM: No ascites or free air. No other fluid collection. BOWEL: No evidence of acute appendicitis. No abnormally distended bowel loops or air fluid levels. No wall thickening or mass. No focal inflammatory changes. LYMPH NODES: No enlarged mesenteric or retroperitoneal lymph nodes. VESSELS: Aorta is non-dilated. REPRODUCTIVE ORGANS: Absent or atrophic. ABDOMINAL WALL: Small fat filled right inguinal hernia. Mild diastases rectus abdominis musculature without midline fascial defect. BONES: No lytic or blastic abnormality. CT/Abdomen/Pelvis without Cont IMPRESSION: Nonobstructing 4 and 3 mm obstructing proximal right ureter foreign 3 mm stones resulting in asymmetric right renal enlargement and significant perinephric stranding density. Numerous additional right and left renal stones to include left renal staghorn calculus. Distended left superior renal calyces without hydroureter. Electronically Signed: Nahun Fraire DO at 22:40 EDT ,
[2022-10-28 23:09] LABS: Color, Urine Yellow (Yellow); Glucose, Dipstick Normal (Normal); Ketone-Dipstick 50 mg/dl (Negative); Leukocyte Esterase-Dipstick 25 /ul (Negative); Nitrite-Dipstick Negative (Negative); Occult Blood-Urine 250 /ul (Negative); Protein-Dipstick 30 mg/dl (Negative); Urine Bilirubin Dipstick Negative (Negative); Urine Clarity Clear (Clear); Urine Urobilinogen Normal (Normal)
== END 2022-10-28 23:42 | disposition home or self-care (01) ==
PROVIDERS: Emergency Provider Emergency Medicine; PCP Internal Medicine; Visit Provider Emergency Medicine
DX: N13.2 Hydronephrosis with renal and ureteral calculous obstruction (principal); R79.89 Other specified abnormal findings of blood chemistry; Z87.442 Personal history of urinary calculi
CPT/HCPCS: 74176; 80053; 81002; 85025; 96361; 96374; 96375; 99283; J7030; A4216; J2405

== ENCOUNTER 2022-11-18 17:00 | Outpatient (RCR) | payer OTHER, BC, SELFPAY ==
--- NOTE | 2022-09-19 09:57 | HP.PTEVAL ---
Patient's Visit Information EMIR SALINAS is a 51 year old F referred to Physical Therapy by Dr. Manny Aguiar DPM with a diagnosis of Displaced trimalleolar fracture of left lower leg, non union fracture, ORIF. Date of Evaluation: 09/19/22 Physical Therapist: Jerry Disla DPT - Visit Plan Frequency: 3x /Week Duration: 8-12 weeks Plan: Start with DF stretching, AROM of L ankle, BAPS board. Light manual to calf followed by stretching. Add in light resistance training, but focus should be on ROM initially. PRogress tolerance to standing and walking. - Subjective Pt. is here today for her initial evaluation with diagnosis of Displaced trimalleolar fracture of left lower leg, subsequent encounter for closed fracture with nonunion. Pt. initial fractured her ankle ~1 year ago. She was treated with an ORIF and PT, but her pain never got much better. She ultimately had to have an other surgery due to non healing. She had removal of hardware and replacement of smaller hardware. pt. is now in a CAM boot and has wean from her crutches. She is still having some pain, but better than prior to surgery. 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 She is not back to work yet, but the plan is to re assess in 2 weeks to determine a RTW date. Pt. denies N/T. Pt. is hopeful to regain her ROM and reduce symptoms in order to get back to all work and hiking activities without pain or limitations. - Pain L lateral leg Pain Intensity (Out of 10): 3 Pain Intensity Range: 1, 6 - Objective POSTURE: Pt. has good posture in stance. Pt. has equal wt. shift between BLEs. Pt. has normal foot positioning bilaterally. PALPATION: Pt. has tenderness along distal fibula with palpation. Tenderness noted in calf, but no signs of DVT. Negative homans. NEURO: pt. has normal sensation in BLEs. Pt. has normal DTR of BLEs. Pt. is able to rise on heels and toes without marked myotomal weakness noted. ROM: AROM L ankle: PF 38deg, DF 0deg. EVR 6deg, INV 4deg. PROM: PF 42deg, DF 2 deg, INV 6deg, EVR 10deg. Pt. has normal hip and knee ROM. Pt. reports tightness as limiting factor with ROM, fairly leathery/tight end feel noted. MMT: RLE 5/5 throughout. LLE: ankle 4/5 DF and PF, EVR/INV 4-/5. L knee: 5-/5 throughout. L hip: 4+/5 throughout. GAIT: Pt. is able to ambulate without CAM boot with decent tolerance., but has limited ankle DF resulting in early heel off during pre swing and increased hyper knee extension to compensate. STAIRS: step to pattern only with use of BHR. - Balance/Special Test Scores Lower Extremity Functional Score: 38 - Goals Goal 1:: LTG: Pt. to be I with HEP. Goal Time Frame: 4-6 Weeks Goal 2:: STG: Pt. to be able to tolerate walking with CAM boot with minimal allowing allowing for return with work with good tolerance. Goal Time Frame: 2-4 Weeks Goal 3:: LTG: Pt. to have normal gait pattern without increase in symptoms of LLE. Goal Time Frame: 6-8 Weeks Goal 4:: STG: Pt. to have increased L ankle DF to at least 12deg allowing for improved gait patern. Goal Time Frame: 2-4 Weeks Goal 5:: LTG: pt. to have full L ankle ROM throughout without increase in symptoms. Goal Time Frame: 4-6 Weeks Goal 6:: LTG: Pt. to have 5/5 strength throughout LLE allowing for good tolerance with all walking and functional mobility. Goal Time Frame: 6-8 Weeks - Rehabilitation Potential Physical Therapy Diagnosis: Pt. has signs and symptoms consistent with Displaced trimalleolar fracture of left lower leg, subsequent encounter for closed fracture with nonunion Rehabilitation Potential: Excellent - Anticipated Interventions Patient/Client Instruction: Educate patient on: Condition, Plan of Care, Risk Factors, Benefits of Fitness Program For the Purpose of:: To improve decision making, To facilitate caregiver knowledge, To improve self management, To prevent re-injury, To improve ability to perform tasks related to life management, To improve tolerance to ADL's Therapeutic Exercise to Include: Strength training, Power training, Endurance training, Balance training, Body mechanics, Postural training, Flexibilty training, Gait and locomotor training, Passive ROM, Active ROM For the Purpose of:: To decrease pain, To decrease swelling/inflammation, To increase ROM, To improve nutrient delivery to tissue, To increase oxygenation perfusion, To improve muscle performance and motor function, To improve ability to perform ADL's, To increase tolerance to activity/condition/position, To improve gait and locomotor functions, To improve health of tissue, To decrease soft tissue restriction, To increase flexibility/ROM Manual Therapy Techniques to Include: Massage, Soft tissue mobilization For the Purpose of:: To decrease pain, To decrease swelling/inflammation, To increase ROM, To increase flexibility/ROM Thank you for the opportunity to evaluate your patient. For Medicare and Medicare HMO plans, please review the plan of care and approve it. It will need to be FAXED BACK to us at [phone] for Medicare purposes. For Medicare only, by signing this I certify the plan of care. Please let me know if there are questions or concerns regarding this plan of care. Physician Signature: Date:
--- NOTE | 2022-11-19 16:11 | HP.PTREVAL_ITS ---
Dr. Manny Aguiar, DPM, It has been my pleasure to treat EMIR SALINAS over the last 14 visits for Displaced trimalleolar fracture of left lower leg, non union fracture, ORIF. Please see the progress note below for an update on the physical therapy plan of care! Subjective: Pt. reports overall doing well. No pain this date. She was able to hike ~1 mile on fairly uneven terrain without much issues. She is completing all of her work activities without increase in symptoms as well. Objective/Function: L ankle ROM: AROM: DF 8deg, PF 35deg, INV 14deg, EVR 12 deg. PROM: DF 14deg, PF 38deg, INV 16deg, EVR 14deg. Pt. has full L knee ROM without increase in symptoms. MMT: PT. has 5/5 strength throughout B ankles. R DF 47.5#, PF 65.3#. L DF 41.8#, WI 59.3#. GAIT: pt. has fairly normal gait pattern. Pt. does not present with early heel off during end of stance phase on LLE, Pt. has good foot clearance with swing phase. Pt. reports no pain with gait. STAIRS: Ascending: normal without HR. Descending: slight early heel off on L side with1 HR, improved as stairs progressed. Still reports some increased stiffness with trials. Overall she is doing well. At this point in time. she is to continue with her exercises for strengthening and ROM as well as progressing walking program I. Pt. consents. Plan Plan: Pt to complete HEP I at this point in time. I will leave the case open for ~3 weeks. If I do not hear from her in this time frame I will assume everything is going well and I will DC her from PT. Balance/Gait/Functional tests - Balance/Special Test Scores Lower Extremity Functional Score: 66 Goals Goal 1:: LTG: Pt. to be I with HEP. Goal Time Frame: 4-6 Weeks Goal Progress: Goal Met Goal 2:: STG: Pt. to be able to tolerate walking with CAM boot with minimal allowing allowing for return with work with good tolerance. Goal Time Frame: 2-4 Weeks Goal Progress: Goal Met Goal 3:: LTG: Pt. to have normal gait pattern without increase in symptoms of LLE. Goal Time Frame: 6-8 Weeks Goal Progress: Goal Met Goal 4:: STG: Pt. to have increased L ankle DF to at least 12deg allowing for improved gait patern. Goal Time Frame: 2-4 Weeks Goal Progress: Goal Met Goal 5:: LTG: pt. to have full L ankle ROM throughout without increase in symptoms. Goal Time Frame: 4-6 Weeks Goal Progress: Goal Met Goal 6:: LTG: Pt. to have 5/5 strength throughout LLE allowing for good tolerance with all walking and functional mobility. Goal Time Frame: 6-8 Weeks Goal Progress: Goal Met Anticipated Interventions Patient/Client Instruction: Educate patient on: Condition, Plan of Care, Risk Factors, Benefits of Fitness Program For the Purpose of:: To improve decision making, To facilitate caregiver k nowledge, To improve self management, To prevent re-injury, To improve ability to perform tasks related to life management, To improve tolerance to ADL's Therapeutic Exercise to Include: Strength training, Power training, Endurance training, Balance training, Body mechanics, Postural training, Flexibilty training, Gait and locomotor training, Passive ROM, Active ROM For the Purpose of:: To decrease pain, To decrease swelling/inflammation, To increase ROM, To improve nutrient delivery to tissue, To increase oxygenation perfusion, To improve muscle performance and motor function, To improve ability to perform ADL's, To increase tolerance to activity/condition/position, To improve gait and locomotor functions, To improve health of tissue, To decrease soft tissue restriction, To increase flexibility/ROM Manual Therapy Techniques to Include: Massage, Soft tissue mobilization For the Purpose of:: To decrease pain, To decrease swelling/inflammation, To increase ROM, To increase flexibility/ROM Please do not hesitate to contact me at [phone] by phone or if you have questions or concerns regarding this new plan of care! Sincerely, Jerry Disla DPT
== END 2022-11-18 19:00 | disposition home or self-care (01) ==
LOC: PT 17:00
PROVIDERS: PCP Internal Medicine; Referring Provider Podiatrist; Visit Provider Podiatrist
DX: S82.852D Displaced trimalleolar fracture of left lower leg, subsequent encounter for closed fracture with routine healing (principal)
CPT/HCPCS: 97110; 97161; 97164

== ENCOUNTER → 2022-12-17 | Outpatient (CLI) | payer OTHER, BC, SELFPAY | END | disposition home or self-care (01) | LOC: LABSPEC 14:30 | PROVIDERS: PCP Internal Medicine; Referring Provider Nurse Practitioner Women's Health; Visit Provider Nurse Practitioner Women's Health | DX: R30.0 Dysuria (principal) | CPT/HCPCS: 87086 ==

== ENCOUNTER → 2023-01-08 | Outpatient (CLI) | payer OTHER, BC, SELFPAY | END | disposition home or self-care (01) | LOC: LABSPEC 16:50 | PROVIDERS: PCP Internal Medicine; Referring Provider Nurse Practitioner Women's Health; Visit Provider Nurse Practitioner Women's Health | DX: R30.0 Dysuria (principal) | CPT/HCPCS: 87086 ==

== ENCOUNTER → 2023-02-21 | Outpatient (CLI) | payer OTHER, BC, SELFPAY ==
[2023-02-21 08:09] LABS: Absolute Lymphocyte Count 1.18 X10^3/uL (0.83-4.51); Absolute Neutrophil Count 5.3 X10^3/uL (2.0-7.7); Basophil# 0.06 X10^3/uL; Basophil% 0.8 % (0-1); Eosinophil# 0.15 X10^3/uL; Eosinophils% 2.1 % (0-5); Hematocrit 42.1 % (37-47); Hemoglobin 13.6 g/dL (12.0-15.0); Lymphocyte # 1.18 X10^3/ul (0.83-4.51); Lymphocyte % 16.2 % (19-41); Mean Corp Hgb Conc 32.3 g/dL (32-36); Mean Corpuscular Hgb 27.5 pg (27.0-32.0); Mean Corpuscular Volume 85.1 fL (81-99); Mean Platelet Vol. 8.9 fl (6.2-12.0); Monocyte% 6.9 % (0-10); NRBC Flagged by Analyzer 0 % (0-5); Neutrophil # 5.33 X10^3/uL (2.7-7.7); Neutrophil % 73.2 % (47-70); Platelet Count 306 K/mm3 (150-450); RBC Distribution Width CV 13.8 % (11.6-14.6); RBC Distribution Width SD 42.7 fl (35.1-43.9); Red Blood Count 4.95 M/mm3 (4.2-5.4); White Blood Count 7.3 K/mm3 (4.4-11.0)
[2023-02-21 08:54] LABS: AST(SGOT) 13 U/L (15-37); Alanine Aminotransfer ALT/SGPT 26 U/L (13-56); Albumin, Serum 3.8 g/dL (3.2-5.0); Alkaline Phosphatase 124 U/L (45-117); Anion Gap 4 (5-15); BUN 18 mg/dL (7-18); BUN/Creat Ratio 21.6 RATIO (10-20); Chloride 105 mmol/L (98-107); Creatinine, Serum 0.83 mg/dL (0.55-1.02); EST Glomerular Filtration Rate 77 mL/min (>60); Est Glom Filt Rate - Afr Amer 93 mL/min (>60); Glucose 90 mg/dL (74-106); Potassium 3.4 mmol/L (3.5-5.1); Protein, Total 7.8 g/dL (6.4-8.2); Sodium Level 137 mmol/L (136-145); Thyroid Stim Hormone (TSH) 6.79 uIU/mL (0.358-3.74)
[2023-02-21 11:48] LABS: Free T3 3.5 pg/mL (2.18-3.98); T4 Free Direct 1.36 ng/dL (0.76-1.46)
== END | disposition home or self-care (01) ==
LOC: LAB 07:31
PROVIDERS: PCP Internal Medicine; Referring Provider Internal Medicine; Visit Provider Internal Medicine
DX: R03.0 Elevated blood-pressure reading, without diagnosis of hypertension (principal); R79.89 Other specified abnormal findings of blood chemistry
CPT/HCPCS: 36415; 80053; 84439; 84443; 84481; 85025

== ENCOUNTER 2023-03-07 09:35 | Observation (INO) | payer OTHER, BC, SELFPAY ==
[2023-03-07] VITALS (13 sets, daily range): BP systolic 105–143; BP diastolic 62–85; PULSE 76–97; RESP 16–18; TEMP 36.1–36.8; O2SAT 95–100; BMI 37.9
--- NOTE | 2023-03-07 05:50 | RAD_ITS ---
INDICATION: PREOP EXAMINATION/TECHNIQUE: X-RAY - XR Abdomen COMPARISON: None. FINDINGS: Frontal views of the abdomen and pelvis were obtained. Bilateral ureteral stents terminate over the bladder. Bilateral renal stones identified. The largest measures 2.6 x 1.2 cm adjacent to the proximal aspect of the left ureteral stent, likely in the renal pelvis. Pelvic phleboliths. No dilated loops of small bowel. Moderate amount of stool. RAD/Abdomen Single View IMPRESSION: Bilateral nephrolithiasis. Bilateral ureteral stents. Electronically Signed: Otis Cooley MD at 6:34 EDT ,
[2023-03-07] MEDS: Lactated Ringers 1,000 ML 15 ML IV ×2 (06:37→08:45)
--- NOTE | 2023-03-07 07:04 | PCM.HP.STD ---
HPI - General General Date of Admission: 03/07/23 Chief Complaint: Left staghorn calculus status post laser right kidney stones HPI Narrative EMIR SALINAS, is a 52 F who presents for removal of right stent and ureteroscopy diagnostic and then we plan to proceed with a left percutaneous nephrostolithotomy [facility] Medical History (Updated 02/21/23 @ 13:28 by Sharon Tyson) Allergic dermatitis Bilateral headaches Bilateral nephrolithiasis Cervical myofascial strain Heart murmur History of kidney stones History of steroid therapy Multiple sclerosis Non-smoker Optic neuritis Thoracic myofascial strain Wears contact lenses Wears glasses Home Medications cholecalciferol (vitamin D3) 50 mcg (2,000 unit) capsule 2,000 unit PO DAILY 12/10/18 [History Last Taken Unknown] cyanocobalamin (vitamin B-12) 500 mcg tablet (B-12 DOTS) 500 mcg PO DAILY 10/28/19 [History Last Taken Unknown] ibuprofen 200 mg capsule 200 mg PO Q6H PRN Pain 07/05/21 [History Last Taken Unknown] vitamin K2 45 mcg capsule 45 mcg PO DAILY 03/01/22 [History Last Taken Unknown] cyclobenzaprine 10 mg tablet 10 mg PO TID PRN muscle spasm #20 tabs 02/18/23 [Rx Last Taken Unknown] prednisone 10 mg tablet 10 mg PO DIRECTED #30 tabs 02/18/23 [Rx Last Taken Unknown] amlodipine 5 mg tablet 5 mg PO DAILY #30 tabs 02/21/23 [Rx Last Taken Unknown] tamsulosin 0.4 mg capsule (Flomax) 0.4 mg PO PRN 02/21/23 [History Last Taken Unknown] Allergy/AdvReac Type Severity Reaction Status Date / Time No Known Allergies Allergy Verified 03/07/23 06:25 Family History Grandfather Brain cancer Father CVA (cerebral vascular accident) Diabetes Grandmother Ovarian cancer Other Asthma Cancer Hyperlipemia Hypertension Kidney disease Thyroid disorder Surgical History (Updated 02/21/23 @ 13:19 by Sharon Tyson) History of ankle surgery History of cholecystectomy History of esophagogastroduodenoscopy (EGD) History of hysterectomy History of lithotripsy History of right oophorectomy Social History Smoking Status: Never smoker alcohol intake: current alcohol intake frequency: holidays/special occasions only substance use type: does not use caffeine: Yes what type of physical activity do you participate in: walking frequency: 3-4 times per week seatbelt use: always do you feel safe at home: Yes additional social history: - [place] 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 Bilateral ureteral stents. Electronically Signed: Otis Cooley MD at 6:34 EDT ,
[2023-03-07] MEDS: Cefazolin 2 GM in 0.9% Normal Saline (100mL Bag) 100 ML IV (07:30)
--- NOTE | 2023-03-07 07:35 | RAD_ITS ---
PROCEDURE: Intraoperative imaging provided for percutaneous left nephrolithotomy. DATE OF EXAMINATION: March 07, 2023. INDICATION: Female, 52 years old. Left renal calculus. FLUOROSCOPY TIME (if supplied): (5 minutes and 15 seconds) minutes/seconds. 117.91 mg RAD/Fluoroscopy 1 Hr or Less IMPRESSION: Intraoperative fluoroscopic services provided for left nephrolithotomy. Electronically Signed: Denzel Amato MD at 9:16 EDT ,
[2023-03-07] MEDS: Bupivacaine Mpf 0.5% 30 ML VIAL (09:20)
--- NOTE | 2023-03-07 09:35 | DCINST_ITS ---
Discharge Instructions Diet Discharge Diet: No restrictions Activity Discharge Activity: Return to Normal Activity and May Not Drive (while taking narcotic pain medications.) Dressing / Incision Call your doctor if you observe: Fever of 101 or Higher Follow Up Care Please Follow Up With: Jose Lara MD When: Call [phone] for an appointment Test Results: Test results from this visit will be discussed in further detail at your follow- up appointment, if applicable. Discharge Plan Admission Primary Reason for Your Visit: Percutaneous removal of left large staghorn calculus Attending Provider: Jose Lara Primary Care Provider: Cass Sorensen Discharge Orders/Prescriptions Prescriptions: New docusate sodium [Colace] 100 mg capsule 100 mg PO BID Qty: 20 0RF ciprofloxacin HCl 500 mg tablet 500 mg PO BID Qty: 10 0RF oxycodone 5 mg tablet 5 mg PO Q6H PRN (Reason: pain) 7 Days Qty: 14 0RF Continued cyanocobalamin (vitamin B-12) [B-12 DOTS] 500 mcg tablet 500 mcg PO DAILY ibuprofen 200 mg capsule 200 mg PO Q6H PRN (Reason: Pain) vitamin K2 45 mcg capsule 45 mcg PO DAILY prednisone 10 mg tablet 10 mg PO DIRECTED Qty: 30 0RF Rx Instructions: 4 tablets daily x3 days, then 3 tabs daily x3 days, then 2 tabs daily x3 days, then 1 tablet daily x3 days cyclobenzaprine 10 mg tablet 10 mg PO TID PRN (Reason: muscle spasm) Qty: 20 0RF Rx Instructions: patient aware to hold baclofen while on this medication cholecalciferol (vitamin D3) 2,000 UNIT capsule 2,000 unit PO DAILY amlodipine 5 mg tablet 5 mg PO DAILY Qty: 30 1RF Discontinued tamsulosin [Flomax] 0.4 mg capsule 0.4 mg PO PRN Referrals / Follow Up: Jose Lara MD [Med Staff - Active Staff] - Cass Sorensen MD [Primary Care Provider] - Disposition Disposition (needs filled in before D/C Order can be placed): Home, Self Care
--- NOTE | 2023-03-07 09:38 | PCM.OPRPT ---
Report of Operation Date of Procedure: 03/07/23 Pre-Operative Diagnosis: Left large staghorn calculus greater than 2 cm in size, status post right laser of stones Post-Operative Diagnosis: The same Surgery/Procedure Performed:: 1. Cystoscopy and right ureteroscopy and removal of right stent 2. Left percutaneous nephrostolithotomy for large stone, (main procedure) 35475 3. Left, Cystoscopy and retrograde pyelogram, 79076, 67797 4. Left introduction of of guidewire into the renal pelvis with dilation and establishment of nephrostomy tract percutaneously 17951 5. Left placement of a nephrostomy tube, and nephrostogram. 46869 Description of Surgical Findings:: 52-year-old female who has a large left staghorn calculus its about 3 cm in size occupying the renal pelvis and the lower pole of the left kidney she also had a very large stone about 10 mm in size in the right side and last week she underwent ureteroscopy and laser lithotripsy of that stone that was successfully done today we plan to remove the right stent and do a right ureteroscopy for diagnostic purposes, and they are working to proceed with a left percutaneous nephrostolithotomy to remove the large stone in the left kidney. Patient was taken back to the operating room at the smooth induction of general anesthesia she was placed in dorsolithotomy position, the urethrovaginal area prepped and draped in usual sterile fashion, I went into the bladder with a cystoscope and grabbed the existing stent from the right side and put a wire up to the stent then over the wire I went in with a flexible Olympus 7.5 Taiwanese ureteroscope and inspected the upper pole lower pole and midpole of the right kidney there were only some tiny little flecks of stones left from the prior treatment so be successfully treated on that side to this point I worked my way down the ureter no other major stones were seen and we did not put a stent back into the right side. Then we went to the left side the rest of the procedure was all done on the left side. I then grabbed the existing stent from the left side this was put in on a prior procedure to help dilate the ureter for planning for this procedure. I then put a wire up we performed a retrograde pyelogram and when we placed a ureteral balloon dilator and insufflated the balloon with air to prevent any migration of stones down the ureter the balloon was placed in the UPJ area but it made sure not to over distend the balloon to prevent any injury to the ureter. On fluoroscopy can see the placement of the balloon dilator and the air that was in the UPJ area along the course of the ureter but is a just gently insufflated just to prevent any migration of stones on the ureter. We then did a nephrostogram to delineate the anatomy I could see the stone in the renal pelvis stone migrating to the lower pole and we could see the upper pole midpole of the calyces. The patient was then put back on the cart the table was then prepared she was then flipped prone facedown make sure all her pressure points were padded and protected and then she was secured to the table we then prepped and draped her left flank for approach for left particular percutaneous nephrostolithotomy and also can establish a nephrostomy track in place and nephrostomy tube. With the x-ray arm in place we used triangulation technique first using the needle to guide the beveled needle into the renal pelvis several attempts were made to get into the left renal pelvis and a first I got return of urine so I left the wire in place and over the wire I advanced the balloon dilator balloon dilated the tract but however this turned out to be outside the kidney so after this was discovered then I removed the balloon dilator and remove the wire we then tried a second site and we tried a second site using bull's-eye technique to go straight into the renal pelvis with this then I was able to get the wire into the renal pelvis got return of urine from the needle and then advanced the Amplatz Super Stiff wire that coiled in the renal pelvis once it was confirmed that was in the renal pelvis on fluoroscopy both by 30 degrees and 0 degree angle using triangulation technique then the nephrostomy balloon dilator 30 Taiwanese balloon dilator was advanced into the renal pelvis using contrast we then inflated the balloon to 30 gavino of pressure and then over the balloon I advanced a access sheath nephrostomy tube access sheath to prep percutaneous access to the left renal pelvis and the kidney stone once this was established and I went through the access sheath with the nephroscope and I was immediately on put on top of the stone in the renal pelvis we then started using lift lithotripsy ultrasonic lithotripsy with the ultrasonic lithotripter both suction the other fragments and performing lithotripsy and the stone the stone is quite hard with the use a higher power setting on the ultrasonic lithotripter and the stone was then completely treated it was a large stone in the renal pelvis and then I then went down was able to navigate into the lower pole of the kidney and removed that stone in the anterior lower pole of the kidney once the entire stone was removed this took about 45 minutes to treat the stone completely then at this point the nephrostomy tract was left in place I then removed the balloon dilator from the ureter and this was done under fluoroscopic guidance we deflated the balloon and remove the balloon dilator we left the Mathis catheter was in place in her bladder and then we advanced a 18 Taiwanese nephrostomy tube into the left kidney once the catheter was in place there then nephrostomy tubes in place we insufflated the balloon with 3 cc of contrast we performed a nephrostogram we can see contrast going into the kidney and going down the ureter without any obstruction and then I removed the sheath over the nephrostomy tube and then cut the sheath off the nephrostomy tube prostate tube was then secured to the patient was stitches we then placed dressings on the site patient's anesthetic was then lightened she was then flipped back to supine then extubated and taken back to the PACU in good condition so successful procedure complete removal of the stone percutaneously was a very large stone probably about 3 cm in size in total from the renal pelvis to the lower pole and then placement of a nephrostomy tube and nephrostogram was completed. Surgeon: Jose Lara Type of Anesthesia: General Drains: mathis and left nephrostomy tube. Admit VTE Documentation VTE Present on Admission: No VTE Mechan Device Prophylaxis: SCD's VTE Pharm Prophylaxis ordered?: No
[2023-03-07] MEDS: Ketorolac 15 MG/ML Vial IV ×2 (10:04→15:57)
[2023-03-07] MEDS: 0.9% Normal Saline (1000mL) 1,000 ML 125 ML IV ×2 (11:55→21:16)
[2023-03-07] MEDS: Ciprofloxacin 400 MG/200 ML BAG 200 MG IV ×2 (12:03→21:24)
[2023-03-07] MEDS: Docusate Sodium 100 MG Capsule 200 MG PO ×2 (12:04→21:22)
[2023-03-07] MEDS: amLODIPine 5 MG Tablet PO (12:04)
[2023-03-07] MEDS: HYDROcodone Bitartrate/Apap 5/325 Tablet PO (12:12)
[2023-03-07] MEDS: 0.9% Saline Lock 10 ML Syringe IV (15:59)
[2023-03-08] MEDS: HYDROcodone Bitartrate/Apap 5/325 Tablet PO (00:54)
[2023-03-08 03:26] VITALS: BP 120/66; PULSE 73; RESP 16; TEMP 36.6; O2SAT 97
[2023-03-08] MEDS: Ketorolac 15 MG/ML Vial IV ×3 (03:52→16:41)
[2023-03-08] MEDS: 0.9% Normal Saline (1000mL) 1,000 ML 125 ML IV (05:59)
[2023-03-08 06:07] VITALS: BP 115/63; PULSE 78; RESP 16; TEMP 36.8; O2SAT 94
--- NOTE | 2023-03-08 06:35 | PCM.PN.GU ---
Subjective Subjective Status post left percutaneous nephrostolithotomy removal of about 3 cm stone from her left kidney via 1 nephrostomy track, she is doing well minimal pain. I clamped her nephrostomy tube this morning we can remove her catheter. Up out of bed ambulate regular diet and then we will remove her nephrostomy tube tomorrow plan for discharge tomorrow morning Objective Data Objective Data Vital Signs: Vital Signs Temp Pulse Resp BP Pulse Ox O2 Del Method O2 Flow Rate 98.3 F 78 16 115/63 94 Room Air 2 03/08/23 06:07 03/08/23 06:07 03/08/23 06:07 03/08/23 06:07 03/08/23 06:07 03/08/23 06:07 03/07/23 11:26 Oxygen Flow Rate (L/min) 2 Oxygen Delivery Method Room Air Weight: 94 kg Body Mass Index (BMI) 37.9 Intake & Output: Intake and Output for Last 24 Hours 03/06/23 03/07/23 03/08/23 23:59 23:59 23:59 Intake Total 2577.67 / 2577.67 947.92 / 947.92 Output Total 380 / 1730 2500 / 2500 Balance 2197.67 / 847.67 -1552.08 / -1552.08 Lab / Micro Data Micro: Microbiology 02/21/23 07:34 Urine, Clean Catch Urine Culture - Final Culture exhibits no growth.
[2023-03-08 07:04] LABS: Hemoglobin 9.9 g/dL (12.0-15.0); Mean Corp Hgb Conc 30.9 g/dL (32-36); Mean Corpuscular Hgb 26.8 pg (27.0-32.0); Mean Corpuscular Volume 86.5 fL (81-99); Mean Platelet Vol. 9.5 fl (6.2-12.0); Platelet Count 236 K/mm3 (150-450); RBC Distribution Width CV 13.8 % (11.6-14.6); RBC Distribution Width SD 43.5 fl (35.1-43.9); White Blood Count 12.7 K/mm3 (4.4-11.0)
[2023-03-08 07:11] VITALS: O2SAT 95
[2023-03-08 07:40] LABS: Anion Gap 4 (5-15); BUN 10 mg/dL (7-18); BUN/Creat Ratio 14.9 RATIO (10-20); Calcium,Total 8.4 mg/dL (8.5-10.1); Chloride 110 mmol/L (98-107); Creatinine, Serum 0.67 mg/dL (0.55-1.02); EST Glomerular Filtration Rate 99 mL/min (>60); Est Glom Filt Rate - Afr Amer 120 mL/min (>60); Estimated Creatinine Clearance 79.45 ml/min; Glucose 121 mg/dL (74-106); Sodium Level 141 mmol/L (136-145)
[2023-03-08 09:05] VITALS: BP 124/75; PULSE 88; RESP 18; TEMP 36.6; O2SAT 96
[2023-03-08] MEDS: amLODIPine 5 MG Tablet PO (09:07)
[2023-03-08] MEDS: Ciprofloxacin 500 MG Tablet PO ×2 (09:07→21:57)
[2023-03-08] MEDS: Docusate Sodium 100 MG Capsule 200 MG PO ×2 (09:07→21:57)
[2023-03-08 14:53] VITALS: BP 128/79; PULSE 87; RESP 16; TEMP 37.2; O2SAT 99
[2023-03-08] MEDS: 0.9% Saline Lock 10 ML Syringe IV (16:41)
[2023-03-08 21:00] VITALS: BP 115/68; PULSE 90; RESP 16; TEMP 36.6; O2SAT 97
[2023-03-09 05:00] VITALS: BP 120/74; PULSE 90; RESP 16; TEMP 36.7; O2SAT 94
[2023-03-09] MEDS: Acetaminophen 325 MG Tablet PO (05:41)
[2023-03-09 07:39] VITALS: O2SAT 100
--- NOTE | 2023-03-09 07:53 | DS.PCM_ITS ---
Providers Date of Admission: 03/07/23 Primary Care Physician: Dr. Cass Sorensen MD Reason For Visit: Percutaneous,Nephrostolithomy Diagnosis Discharge Diagnosis (1) Left renal stone: Status: Acute Code(s): N20.0 - Calculus of kidney Medications at Discharge Home Medications cholecalciferol (vitamin D3) 50 mcg (2,000 unit) capsule 2,000 unit PO DAILY 12/10/18 cyanocobalamin (vitamin B-12) 500 mcg tablet (B-12 DOTS) 500 mcg PO DAILY 10/28/19 ibuprofen 200 mg capsule 200 mg PO Q6H PRN Pain 07/05/21 vitamin K2 45 mcg capsule 45 mcg PO DAILY 03/01/22 cyclobenzaprine 10 mg tablet 10 mg PO TID PRN muscle spasm #20 tabs 02/18/23 prednisone 10 mg tablet 10 mg PO DIRECTED #30 tabs 02/18/23 amlodipine 5 mg tablet 5 mg PO DAILY #30 tabs 02/21/23 ciprofloxacin HCl 500 mg tablet 500 mg PO BID #10 tabs 03/07/23 docusate sodium 100 mg capsule (Colace) 100 mg PO BID #20 caps 03/07/23 oxycodone 5 mg tablet 5 mg PO Q6H PRN pain 7 days #14 tabs 03/07/23 Hospital Course Summary of Care Provided Minutes Spent on Discharge: 20 Hospital Course: 52-year-old female with a large stone in the right kidney she underwent outpatient ureteroscopy laser lithotripsy she then came into the hospital we did right side ureteroscopy removal of the stent her stones in the right side completely cleared out from the prior procedure and then she underwent a percutaneous left nephrostolithotomy successful procedure with complete removal of the stone we then clamped the nephrostomy tube yesterday postoperative day #1 she tolerated clamping for 24 hours without any problems and this morning I removed the nephrostomy tube and the patient will go home today. She is given prescription for pain medicine antibiotics stool softeners and she will follow- up in my office in 2 weeks for checkup Physical Exam Const alert and oriented x3 General Appearance: cooperative HEENT normocephalic, head/scalp atraumatic, EAC's normal and TM's normal bilaterally Eyes PERRL and EOMs intact bilaterally Pupil: sluggish Neck no lymphadenopathy, supple and no JVD General: trachea midline Lymph Lymphatic: no lymphadenopathy noted, lymphedema and lymphadenopathy Resp normal respiratory effort, normal air movement and clear to auscultation bilaterally Cardio regular rate, regular rhythm and peripheral pulses 2+ throughout GI soft to palpation, non-tender and non-distended Extremity normal capillary refill and no clubbing, cyanosis or edema General Extremity: no tenderness to palpation of joints or extremities Skin no rashes or lesions noted General Skin Exam: turgor normal Lesions: no lesions Rashes: no rashes Neuro CN's II-XII intact bilaterally Speech: speech normal Motor Exam: strength 5/5 throughout; Negative for general weakness Psych thought process normal, cooperative and affect normal Appearance: appropriate Weight / BMI Weight Weight: 94 kg Body Mass Index (BMI) 37.9 ABG / Lab / Microbiology Data 03/08/23 06:02 03/08/23 06:02 Microbiology: Microbiology 02/21/23 07:34 Urine, Clean Catch Urine Culture - Final Culture exhibits no growth. D/C Instructions Discharge Diet: No restrictions Call your doctor if you observe: Fever of 101 or Higher Please Follow Up With: Jose Lara MD When: Call [phone] for an appointment Meaningful Use Info Meaningful Use Diagnoses (Choose all that apply): None applicable Discharge Plan Admission Admit Date/Time: 03/07/23 09:35 Primary Reason for Your Visit: Percutaneous removal of left large staghorn calculus Attending Provider: Jose Lara Primary Care Provider: Cass Sorensen Discharge Orders/Prescriptions Prescriptions: New docusate sodium [Colace] 100 mg capsule 100 mg PO BID Qty: 20 0RF ciprofloxacin HCl 500 mg tablet 500 mg PO BID Qty: 10 0RF oxycodone 5 mg tablet 5 mg PO Q6H PRN (Reason: pain) 7 Days Qty: 14 0RF Continued cyanocobalamin (vitamin B-12) [B-12 DOTS] 500 mcg tablet 500 mcg PO DAILY ibuprofen 200 mg capsule 200 mg PO Q6H PRN (Reason: Pain) vitamin K2 45 mcg capsule 45 mcg PO DAILY prednisone 10 mg tablet 10 mg PO DIRECTED Qty: 30 0RF Rx Instructions: 4 tablets daily x3 days, then 3 tabs daily x3 days, then 2 tabs daily x3 days, then 1 tablet daily x3 days cyclobenzaprine 10 mg tablet 10 mg PO TID PRN (Reason: muscle spasm) Qty: 20 0RF Rx Instructions: patient aware to hold baclofen while on this medication cholecalciferol (vitamin D3) 2,000 UNIT capsule 2,000 unit PO DAILY amlodipine 5 mg tablet 5 mg PO DAILY Qty: 30 1RF Discontinued tamsulosin [Flomax] 0.4 mg capsule 0.4 mg PO PRN Referrals / Follow Up: Jose Lara MD [Med Staff - Active Staff] - Cass Sorensen MD [Primary Care Provider] -
[2023-03-09 08:42] VITALS: BP 115/71; PULSE 79; RESP 18; TEMP 36.7; O2SAT 100
[2023-03-09] MEDS: Docusate Sodium 100 MG Capsule 200 MG PO (08:51)
[2023-03-09] MEDS: amLODIPine 5 MG Tablet PO (08:51)
[2023-03-09] MEDS: Ciprofloxacin 500 MG Tablet PO (08:53)
== END 2023-03-09 09:44 | disposition home or self-care (01) ==
LOC: SDC 10:10 → MS3 10:10
PROVIDERS: Admitting Provider Urology; PCP Internal Medicine; Referring Provider Urology; Visit Provider Urology
PROC: (CPT 50081; principal; 2023-03-07 07:10)
DX: N20.0 Calculus of kidney (principal); G35 Multiple sclerosis; Z79.899 Other long term (current) drug therapy
CPT/HCPCS: 50081; 00862; 52310; 50432; 50706; 36415; 74018; 76000; 80048; 85027; 87086; 94668; 96361; 96365; 96366; 96375; 96376; 99221; 99252; J7030; J7120; A4216; C1769; G0378; G0463; J0744; J2405

== ENCOUNTER → 2023-07-08 | Outpatient (CLI) | payer OTHER, BC, SELFPAY ==
--- NOTE | 2023-07-08 16:43 | RAD_ITS ---
INDICATION: HISTORY OF URINARY CALCULI EXAMINATION/TECHNIQUE: X-RAY - XR Abdomen 1 View COMPARISON: Prior study dated: 03/07/2023 FINDINGS: BOWEL GAS PATTERN: Nonspecific gaseous colon. The gas pattern is nonobstructive. No bowel or stomach distention. FREE AIR: Not assessed on a single supine view. ORGANOMEGALY: Not seen. CALCIFICATIONS: No abnormal calcifications observed. LOWER CHEST: No acute pathology. BONES AND SOFT TISSUES: Previously inserted bilateral double-J stent catheters have been removed. RAD/Abdomen Single View IMPRESSION: Non-obstructive bowel gas pattern. Electronically Signed: Zach Powell MD at 18:43 EST ,
--- OUTSIDE RECORDS SUMMARY | 2023-07-08 20:17 | XMS RPT_ITS | CCD ---
Author Name Unknown Address [address] [facility] [address] [place] [address] Organization [facility] Care Team Providers Care Security Project Manager Name Role Phone CAROL FUNK Primary Care Unavailable BARRIE BROWNE Attending Unavailable Ángel Garrett DO Primary Care Provider [phone] Medications Completed/Discontinued Medications Medication Drug Class(es) Dates Sig (Normalized) Sig (Original) baclofen 10 mg oral tablet (1 source) gamma-Aminobutyri c Acid-ergic Agonist Start: 01-05-2020 take 1 tablet by mouth three times daily baclofen (LIORESAL) 10 mg tablet Take 1 tablet by mouth three times daily. 90 tablet 5 01/05/2020 Active Problems Active Problems Problem Classification Problem Date Documented Date Episodic/Chronic Endometriosis (1 source) Endometriosis (clinical); Translations: [Endometriosis, unspecified] Onset: 07-09-2012 07-09-2012 Chronic Headache; including migraine (1 source) Tension-type headache; Translations: [Tension-type headache, unspecified, not intractable] Onset: 10-25-2016 10-25-2016 Chronic Multiple sclerosis (1 source) Multiple sclerosis; Translations: [Multiple sclerosis] Onset: 04-12-2011 04-12-2011 Chronic Other nutritional; endocrine; and metabolic disorders (1 source) Obese class I; Translations: [Obesity, unspecified] Onset: 10-25-2016 10-25-2016 Chronic Other nutritional; endocrine; and metabolic disorders (1 source) Body mass index 30+ - obesity; Translations: [Body mass index (BMI) 30.0-30.9, adult] Onset: 12-02-2017 12-02-2017 Chronic Other screening for suspected conditions (not mental disorders or infectious disease) (1 source) Patient encounter status; Translations: [Encounter for screening mammogram for malignant neoplasm of breast] Episodic Past or Other Problems Problem Classification Problem Date Documented Da te Episodic/Chronic Calculus of urinary tract (1 source) Kidney stone; Translations: [Calculus of kidney] Onset: 03-07-2014 03-07-2014 Episodic Other connective tissue disease (1 source) Plantar fasciitis; Translations: [Plantar fascial fibromatosis] Onset: 03-05-2018 03-05-2018 Episodic Other connective tissue disease (1 source) Tendinitis of left posterior tibial tendon; Translations: [Posterior tibial tendinitis, left leg] Onset: 03-05-2018 03-05-2018 Episodic Residual codes; unclassified (1 source) Family history of renal stone; Translations: [Family history of disorders of kidney and ureter] Onset: 12-02-2017 12-02-2017 Episodic Residual codes; unclassified (1 source) Family history of diabetes mellitus; Translations: [Family history of diabetes mellitus] Onset: 12-02-2017 12-02-2017 Episodic Spondylosis; intervertebral disc disorders; other back problems (2 sources) Backache; Translations: [Dorsalgia, unspecified] Onset: 12-21-2014 02-23-2015 Episodic Results Test Name Value Interpretation Reference Range Facil ity Encounters Encounter Date Encounter Type Care Provider Facility Start: 11-21-2021 ambulatory Ángel clarke DO Work Phone: Internal Medicine [facility] Start: 07-15-2021 End: 07-15-2021 Emergency department patient visit [facility] Procedures Date Procedure Procedure Detail Performing Clinician Start: 01-05-2020 Adult depression scr eening assessment Ángel Garrett DO Work Phone: Start: 08-13-2017 Mammography Ángel fitzpatrick DO Work Phone: Plan of Treatment Date Care Activity Detail Author Start: 12-13-2024 LIPID SCREEN LIPID SCREEN [facility] Start: 01-31-2024 DIABETES SCREEN DIABETES SCREEN [facility] Start: 01-24-2022 Influenza vaccination INFLUENZA (#1) [facility] Start: 01-04-2021 Adult depression screening assessment DEPRESSION SCREENING [facility] Start: 11-25-2020 COVID-19 VACCINE (3 - Booster for Moderna series) COVID-19 VACCINE (3 - Booster for Moderna series) [facility] Start: 08-13-2018 Mammography MAMMOGRAM [facility] Start: 2017 COLOGUARD (FIT-DNA) COLOGUARD (FIT-DNA) [facility] Start: 2017 Colonoscopy COLONOSCOPY [facility] Start: 2017 COLORECTAL CANCER SCREENING COLORECTAL CANCER SCREENING [facility] Start: [address] COLONOGRAPHY [facility] Start: 2017 FECAL OCCULT BLOOD FECAL OCCULT BLOOD [facility] Start: 2017 SIGMOIDOSCOPY SIGMOIDOSCOPY [facility] Start: 11-28-1991 Urine microalbumin profile DTAP,TDAP,TD (1 - Tdap) [facility] Start: 1990 HEPATITIS C SCREENING HEPATITIS C SCREENING [facility] Start: 1990 HIV SCREENING HIV SCREENING [facility] End: 12-21-2022 Screening mammography bi 2-view breast inc cad MARIE SCREENING Radiology Routine Encounter for screening mammogram for breast cancer 1 Occurrences starting 11/21/2021 until 12/21/2022 [facility] Work Phone: Immunizations Immunization Date Immunization Notes Care Provider Nikolay avila 03-18-2018 influenza virus vaccine, unspecified formulation Ángel Garrett DO Work Phone: [facility] 03-18-2018 influenza, seasonal, injectable Ángel Garrett DO Work Phone: [facility] 03-12-2017 influenza virus vaccine, unspecified formulation Ángel Garrett DO Work Phone: [facility] 02-27-2016 influenza virus vaccine, unspecified formulation Ángel Garrett DO Work Phone: [facility] 03-10-2015 influenza virus vaccine, unspecified formulation Ángel Garrett DO Work Phone: [facility] 03-01-2014 influenza, seasonal, injectable Ángel Garrett DO Work Phone: [facility] Work Phone: Payers Date Payer Category Payer Unknown [employer] [id number] 2020-Present [phone] [address] [address] [place] [address] PPO [id number] 2012 Unknown BRYANT SYLVESTER PPO [id number] 2012-Present [phone] [address] [place] [address] PPO [id number] 1972 Unknown [id number] Unknown [id number] Social History Date Type Detail Facility Tobacco smoking stat [facility] Never smoked tobacco [facility] Start: 02-02-2021 Alcohol intake Current drinke r of alcohol (finding) [facility] Start: 08-13-2017 History SDOH Alcohol Comment Socially [facility] Start: 1970 Sex Assigned At Not on file [facility] Medical Equipment Procedure Code Equipment Code Equipment Origin al Text Equipment Identifier Dates [facility] ent 6x22 - [id number] Start: 01-19-2014 Goals Date Patient Goal Desired Activity /State Clinical Note 11-21-2021 Note Date & Type Note Facility 11-21-2021 Note Patient Outreach (IN [facility]) SARANYA CEJA ([id number]) 1970 F Date Time Provider Department 11/21/21 ÁNGEL GARRETT During your visit today, we recorded the following information about you: Allergies As of Date: 11/21/2021 (No Known Allergies) Date Reviewed: 02/02/2021 Reviewed by: Katja Reed MA - Fully Assessed Visit Diagnosis:Encounter for screening mammogram for breast cancer [Z12.31] Order(s):MARIE SCREENING [[id number]] Order #: [id number] FUTURE Prescriptions as of 11/26/2021 - TECFIDERA [address] Take 1 capsule (240 mg) by mouth twice daily. - baclofen (LIORESAL) 10 mg tablet Take 1 tablet by mouth three times daily. - triamcinolone acetonide (KENALOG) 0.5 % cream Apply 1 application to affected area twice daily. For red lesions on legs, For rash/itching. Apply sparingly. Avoid face/skin fold. - TECFIDERA 240 mg cpDR TAKE ONE CAPSULE BY MOUTH TWICE DAILY. SWALLOW WHOLE. DO NOT OPEN CAPSULE. DO NOT CRUSH OR CHEW. STORE AT ROOM TEMPERATURE. - tamsulosin ER (FLOMAX) 0.4 mg cp24 Take 1 capsule by mouth daily at bedtime. For kidney stones - estrogens conjugated (PREMARIN) 0.3 mg tablet Take 1 tablet by mouth once daily. - progesterone micronized (PROMETRIUM) 100 mg capsule Take 1 capsule by mouth daily at bedtime. - meloxicam (MOBIC) 15 mg tablet Take 1 tablet by mouth once daily as needed for Pain (tension headache). Take with food. - hydrocortisone 2.5 % ointment Apply 1 application to affected area as needed. - cyclobenzaprine (FLEXERIL) 10 mg tablet Take 1 tablet by mouth three times daily as needed for Muscle Spasm. - Cholecalciferol, Vitamin D3, (VITAMIN D) 1,000 unit Tab Take 2,000 Units by mouth once daily. 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] 03/09/2013 03/14/2014 Psoriasiform dermatitis [L30.8] 03/09/2013 03/14/2014 Xerosis cutis [L85.3] 03/09/2013 03/14/2014 Hand eczema [L30.9] 03/09/2013 03/14/2014 Endometrioma [N80.9] 10/08/2013 03/14/2014 Calculus of kidney [N20.0] 03/07/2014 Counseling and coordination of care [Z71.89] 10/20/2014 01/09/2015 Backache [M54.9] 12/21/2014 Cervicalgia [M54.2] 12/21/2014 Obesity (BMI 30.0-34.9) [E66.9] 10/25/2016 Tension headache [G44.209] 10/25/2016 Family history of nephrolithiasis [Z84.1] 12/02/2017 BMI 30.0-30.9,adult [Z68.30] 12/02/2017 Family history of diabetes mellitus [Z83.3] 12/02/2017 Plantar fasciitis [M72.2] 03/05/2018 Posterior tibial tendinitis of left leg [M76.82*03/05/2018 Encounter Status:Closed by [facility], PRODUSER on 11/26/21 [facility] Progress note 02-02-2021 Note Date & Type Note Facility 02-02-2021 Note HNO ID: [id number] Author: Rossy Kaur PA-C Service: ? Author Type: Physician Dietary Aide Teacher Type: Progress Notes Filed: 02/02/2021 9:29 AM Note Text: [facility]LE S[facility]OSIS FOLLOWUP/ESTABLISHED PATIENT VISIT PRINCIPAL NEUROLOGIC DIAGNOSIS: Multiple Sclerosis ? [facility] FOLLOWUP VISIT MS DISEASE HISTORY: Date of onset: jul-2004 est Date of diagnosis: Feb-2009 Disease course from Onset: Relapsing/Remitting Disease course last year: Relapsing/Remitting Medications for MS Used in the Past: Rebif (stopped 06/2010) patient decision, did not like the injections, had a lot of bruising Current Medications Used for MS Disease:?Tecfidera (started 05/2014) Last MRI brain:?01/30/21 (stable) ? CHIEF COMPLAINT: Follow-up on MS disease modifying therapy ? INTERVAL HISTORY: Usual treating team: Roosevelt/Vincent --> Antonio/Vincent The patient is accompanied by self. The patient was last seen 01/05/20, currently taking Tecfidera (generic and then back to brand). Since the patient's last visit the patient reports overall feeling stable. More tingling and burning in legs. Last 2 months has had some pain behind right knee and up hamstring. Saw PCP did US. Negative for clot. Crossing leg makes it worse. 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 Denies other health changes Moderna vaccine series. Tolerated well SUBJECTIVE AND REVIEW OF SYSTEMS: Neuro-QoL Functions (higher=better functioning) Office Visit from 01/05/2020 in [facility] Office Visit from 12/30/2012 in [facility] Upper Extremity Domain T Score 49 (Patient-Rptd) 56.84 (Patient-Rptd) Lower Extremity Domain T Score 50 (Patient-Rptd) 62.28 (Patient-Rptd) Cognitive Function Domain T Score 50 (Patient-Rptd) ? Positive Affect Well Being T Score ? ? Ability To Participate In Social Roles T Score 54 (Patient-Rptd) ? Satisfaction With Social Roles T Score 62 (Patient-Rptd) ? Neuro-QoL Symptoms (higher=worse symptoms) Office Visit from 01/05/2020 in [facility] Sleep Domain T Score 60 (Patient-Rptd) Fatigue Domain T Score 54 (Patient-Rptd) Anxiety Domain T Score 44 (Patient-Rptd) Depression Domain T Score 44 (Patient-Rptd) Stigma Domain T Score 37 (Patient-Rptd) Emotional Behavior Dyscontrol T Score ? *NeuroQoL is a multi-domain patient-reported quality of life questionnaire. PHQ-9 Office Visit from 01/05/2020 in [facility] Office Visit from 07/30/2018 in [facility] PHQ-9 Score 7 4 *PHQ-9 is a questionnaire for depressive symptoms, with scores 0-4 indicating none, 5-9 mild, 10-14 moderate, 15-19 moderately severe, and 20-27 severe symptoms. PROMIS-10 Office Visit from 07/30/2018 in [facility] Office Visit from 08/20/2017 in [facility] Global Physical Health T Score 47.7 44.9 Global Mental Health T Score 56 56 0-10 Standard Pain Scale 3 4 *PROMIS-10 is a patient-reported quality of life measure, typically reported as physical and mental domains. Here scores are expressed as percentiles, where the lowest possible score is one, the highest possible score is 99, and 50 is average. Refer to patient-entered data. Mood: PHQ9 responses reviewed and appear below - stable Bladder: no change - denies UTI Bowel: No change Pain related to today's visit:reviewed on nursing intake documentation Fatigue: No change Sleep: no change Vision: stable Taking vitamin D supplements PAST HISTORY was reviewed and updated: PAST MEDICAL HISTORY Diagnosis Date - Abdominal pain mid upper quadrant, GB - Eczema - Endometriosis Right endometrioma with diffuse atypia - Infertility, female unexplained - [facility] (HCC[facility] rel[facility] rem[facility] - Nephrolithiasis Dr. 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 SOCIAL HISTORY was reviewed and updated: Social History Tobacco Use Smoking status: Never Smoker Smokeless tobacco: Never Used Living situation: Living at home without assistance Employment Status / Disability: Full-time OBJECTIVE: VITALS AND WELLNESS: BP 137/75 (BP Site: Left Arm, BP Position: Sitting, BP Cuff Size: Extra Large Adult) Pulse 73 Ht 154.9 cm (5' 1 ) Wt 89.8 kg (198 lb) LMP 08/25/2013 BMI 37.41 kg/m? MSPT Performance Tests 07/30/2018 12/18/2016 Processing Speed Total N (more content not included)... [facility] Progress note 01-30-2021 Note Date & Type Note Facility 01-30-2021 Note HNO ID: [id number] Author: Brittney Pierce RT(R) Service: ? Author Type: Technologist Type: Progress Notes Filed: 01/30/2021 9:46 AM Note Text: Radiology Service Progress Note DATE OF SERVICE: January 30, 2021 TIME: 9:45 AM PATIENT IDENTITY VERIFICATION COMPLETED USING TWO (2) STANDARD IDENTIFIERS: Name and Date of confirmed by patient verbally. FALL SCREENING: Has the patient had 2 falls in the last year or 1 fall with injury or currently using an Ambulatory Assistive Device (Walker, Cane, Wheelchair, Crutches, etc.)? No PATIENT GENDER DATA: Female. status: : No status: NO. PATIENT RELEVANT IMPLANT DATA REVIEWED: Yes ALLERGIES: Reviewed and unchanged CONTRAST ALLERGY: NO. EXAM: MRI - CONTRAST TYPE: GROUP II PERIPHERAL IV DATA: Ambulatory: A peripheral IV was started in the Right antecubital site with a Angio cath: 22 gauge. RADIOLOGY DEPARTMENT: MR; Exam(s) Completed: Head: Multiple Sclerosis SIGNATURE: Brittney Pierce RT(R) PATIENT NAME: Saranya Ceja DATE: January 30, 2021 TIME: 9:45 AM [facility] Progress note 01-22-2021 Note Date & Type Note Facility 01-22-2021 Note HNO ID: [id number] Author: Wendy Tobar [facility] Service: ? Author Type: ? Type: Progress Notes Filed: 01/23/2021 9:04 AM Note Text: Medication Requested: Tecfidera Insurance Name: [employer]/ [employer] [place] phone #: [phone] Status: Approved from 01/22/2021 to 01/22/2022 case # [id number] [facility] Clinical Note 12-15-2020 Note Date & Type Note Facility 12-15-2020 Note Patient Outreach (IN [facility]) SARANYA CEJA ([id number]) 1970 F Date Time Provider Department 12/15/20 ÁNGEL GARRETT During your visit today, we recorded the following information about you: Allergies As of Date: 12/15/2020 (No Known Allergies) Date Reviewed: 01/05/2020 Reviewed by: Katja Reed - Fully Assessed Visit Diagnosis:Encounter for screening mammogram for breast cancer [Z12.31] Order(s):[facility] SCREENING [[id number]] Order #: [id number] FUTURE Prescriptions as of 12/18/2020 - TECFIDERA [address] Take 1 capsule (240 mg) by mouth twice daily. - baclofen (LIORESAL) 10 mg tablet Take 1 tablet by mouth three times daily. - triamcinolone acetonide (KENALOG) 0.5 % cream Apply 1 application to affected area twice daily. For red lesions on legs, For rash/itching. Apply sparingly. Avoid face/skin fold. - TECFIDERA 240 mg cpDR TAKE ONE CAPSULE BY MOUTH TWICE DAILY. SWALLOW WHOLE. DO NOT OPEN CAPSULE. DO NOT CRUSH OR CHEW. STORE AT ROOM TEMPERATURE. - tamsulosin ER (FLOMAX) 0.4 mg cp24 Take 1 capsule by mouth daily at bedtime. For kidney stones - estrogens conjugated (PREMARIN) 0.3 mg tablet Take 1 tablet by mouth once daily. - progesterone micronized (PROMETRIUM) 100 mg capsule Take 1 capsule by mouth daily at bedtime. - meloxicam (MOBIC) 15 mg tablet Take 1 tablet by mouth once daily as needed for Pain (tension headache). Take with food. - hydrocortisone 2.5 % ointment Apply 1 application to affected area as needed. - cyclobenzaprine (FLEXERIL) 10 mg tablet Take 1 tablet by mouth three times daily as needed for Muscle Spasm. - Cholecalciferol, Vitamin D3, (VITAMIN D) 1,000 unit Tab Take 2,000 Units by mouth once daily. 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] 03/09/2013 03/14/2014 Psoriasiform dermatitis [L30.8] 03/09/2013 03/14/2014 Xerosis cutis [L85.3] 03/09/2013 03/14/2014 Hand eczema [L30.9] 03/09/2013 03/14/2014 Endometrioma [N80.9] 10/08/2013 03/14/2014 Calculus of kidney [N20.0] 03/07/2014 Counseling and coordination of care [Z71.89] 10/20/2014 01/09/2015 Backache [M54.9] 12/21/2014 Cervicalgia [M54.2] 12/21/2014 Obesity (BMI 30.0-34.9) [E66.9] 10/25/2016 Tension headache [G44.209] 10/25/2016 Family history of nephrolithiasis [Z84.1] 12/02/2017 BMI 30.0-30.9,adult [Z68.30] 12/02/2017 Family history of diabetes mellitus [Z83.3] 12/02/2017 Plantar fasciitis [M72.2] 03/05/2018 Posterior tibial tendinitis of left leg [M76.82*03/05/2018 Encounter Status:Closed by KOURTNEY, PRODUSER on 12/18/20 [facility] History of Past illness Narrative 10-20-2014 Note Date & Type Note Facility documented as of this encounter (statuses as of 11/26/2021) [facility] Evaluation note Note Date & Type Note Facility documented in this encounter [facility] Reason for referral (narrative) Diagnostic Procedure Only (Routine) - Pending Review Note Date & Type Note Facility Referral ID Status Reason Start Date Expiration Date Visits Requested Visits Authorized [id number] Pending Review Auto-Generat ed Referral 11/21/2021 12/21/2022 1 1 [facility] Summary Purpose Family History No Family History Records FoundNo Family History Records FoundNo Family History Records Found Advance Directives No Advanced Directives Records FoundNo Advanced Directives Records FoundNo Advanced Directives Records Found Additional Source Comments INFORMATION SOURCE (unrecogn ized section and content) DATE CREATED AUTHOR AUTHOR'S ORGANIZ ATION 11/26/2021 [facility] DATE CREATED AUTHOR AUTHOR'S ORGANIZ ATION 12/31/2022 [facility] Source Comments (unrecognize d section and content) In the event this informatio n is protected by the Federal Confidentiality of Alcohol and Drug Abuse Patient Records regulations: The Federal rules restrict any use of the information to criminally investigate or prosecute any alcohol or drug abuse patient.[facility] Care Teams (unrecognized sec tion and content) FOR RECORDS PERTAINING TO PATIENTS WHO ARE OR HAVE BEEN ENROLLED IN A CHEMICAL DEPENDENCY/SUBSTANCEABUSE PROGRAM, SOME INFORMATION MAY BE OMITTED. This clinical summary was aggregated from multiple sources. Caution should be exercised in using it in the provision of clinical care. This summary normalizes information from multiple sources, and as a consequence, information in this document may materially change the coding, format and clinical context of patient data. In addition, data may be omitted in some cases. CLINICAL DECISIONS SHOULD BE BASED ON THE PRIMARY CLINICAL RECORDS. [facility]. provides no warranty or guarantee of the accuracy or completeness of information in this document.
== END | disposition home or self-care (01) ==
PROVIDERS: PCP Internal Medicine; Referring Provider Nurse Practitioner; Visit Provider Nurse Practitioner
DX: Z87.442 Personal history of urinary calculi (principal)
CPT/HCPCS: 74018